=== PATIENT | male | born 1945 | race Caucasian/White ===

== ENCOUNTER 2023-04-01 12:21 | Outpatient (CLI) | payer MEDICARE, MEDICAID, SELFPAY ==
--- NOTE | ~2023-04-01 | MR_ITS ---
EXAMINATION: MR cervical spine wo con DATE: 04/01/2023 13:22 INDICATION: Neck pain. TECHNIQUE: Magnetic resonance imaging (MRI) of the cervical spine was performed without intravenous c ontrast. COMPARISON: None FINDINGS: There is 13 degrees dextroscoliosis of cervical spine. There is 2 mm anterolisthesis of C4 on C5 and 3 mm anterolisthesis of C7 on T1. There is mildly decreased disc height at C4-C5, C5-C6, an d C6-C7. The spinal cord signal intensity is normal. The following disc levels are specifically discu ssed: C2-C3: The disc is bulging. There is mild right and severe left uncovertebral joint osteoarthritis. T here is moderate right and severe left facet joint osteoarthritis. There is mild bilateral neural for aminal stenosis. There is no central canal stenosis. C3-C4: The disc does not extend beyond the endplate margin. There is mild right and severe left uncov ertebral joint osteoarthritis. There is severe right facet joint osteoarthritis. There is ankylosis o f left facet joint with severe hypertrophy. There is mild right and moderate left neural foraminal st enosis. There is no central canal stenosis. C4-C5: There is a central extrusion. There is mild right and moderate left uncovertebral joint osteoa rthritis. There is severe bilateral facet joint osteoarthritis. There is moderate right and severe le ft neural foraminal stenosis. There is mild central canal stenosis. C5-C6: The disc is bulging. There is severe bilateral uncovertebral joint osteoarthritis. There is mo derate right and severe left facet joint osteoarthritis. There is moderate right and mild left neural foraminal stenosis. There is mild central canal stenosis with ventral indentation of the spinal cord . C6-C7: The disc is bulging. There is severe bilateral uncovertebral joint osteoarthritis. There is se doug bilateral facet joint osteoarthritis. There is moderate right and mild left neural foraminal sharad nosis. There is mild central canal stenosis. C7-T1: The disc is bulging. There is no uncovertebral joint osteoarthritis. There is severe bilateral facet joint osteoarthritis. There is moderate bilateral neural foraminal stenosis. There is no centr al canal stenosis. IMPRESSION: 1. Moderate cervical spondylosis. 2. Cervical dextroscoliosis. Reviewed, dictated and finalized at location A.
== END 2023-04-01 12:22 | disposition home or self-care (01) ==
PROVIDERS: PCP Internal Medicine; Visit Provider Hospitalist
DX: M47.892 Other spondylosis, cervical region (principal)
CPT/HCPCS: 72141

== ENCOUNTER 2023-10-06 13:28 | Outpatient (CLI) | payer MEDICARE, MEDICAID, SELFPAY ==
--- NOTE | ~2023-10-06 | CT_ITS ---
EXAMINATION: CT cervical spine wo con DATE: 10/06/2023 13:54 INDICATION: Neck fracture. Pain radiating down the right arm. TECHNIQUE: Computed tomography (CT) of the cervical spine was performed without intravenous contrast. Automated exposure control and iterative reconstruction technique were employed. The dose-length pro duct was 383.30 mGy-cm. COMPARISON: Cervical spine MRI 04/01/2023 FINDINGS: There is 12 degrees dextroscoliosis of cervical spine. There is 2 mm anterolisthesis of C4 on C5 and C7 on T1. Vertebral body heights are normal. There is moderately decreased disc height at C 2-C3, mildly decreased disc height at C3-C4 and C4-C5, and moderately decreased disc height at C5-C5 and C5-C6. Osseous central spinal canal is developmentally small. The following disc levels are speci fically discussed: C2-C3: There is severe left uncovertebral joint osteoarthritis. There is severe bilateral facet joint osteoarthritis. There is mild bilateral neural foraminal stenosis. There is no central canal stenosi s. C3-C4: There is mild right and severe left uncovertebral joint osteoarthritis. There is severe right facet joint osteoarthritis. There is ankylosis of left facet joint with severe hypertrophy. There is mild right and moderate left neural foraminal stenosis. There is no central canal stenosis. C4-C5: There is moderate and severe left uncovertebral joint osteoarthritis. There is severe bilatera l facet joint osteoarthritis. There is mild right and moderate left neural foraminal stenosis. There is mild central canal stenosis. C5-C6: There is severe bilateral uncovertebral joint osteoarthritis. There is severe bilateral facet joint osteoarthritis. There is mild bilateral neural foraminal stenosis. There is mild central canal stenosis. C6-C7: There is severe right and mild left uncovertebral joint osteoarthritis. There is severe right facet joint osteoarthritis. There is ankylosis of left facet joint with severe hypertrophy. There is moderate bilateral neural foraminal stenosis. There is mild central canal stenosis. C7-T1: There is no uncovertebral joint osteoarthritis. There is severe bilateral facet joint osteoart hritis. There is moderate bilateral neural foraminal stenosis. There is no central canal stenosis. IMPRESSION: 1. Moderate cervical spondylosis. 2. Cervical dextroscoliosis. Reviewed, dictated and finalized at location E. MATCHER
== END 2023-10-06 13:29 | disposition home or self-care (01) ==
LOC: ANHIMG 13:35
PROVIDERS: PCP Hospitalist; Visit Provider Hospitalist
DX: S12.9XXD Fracture of neck, unspecified, subsequent encounter (principal); X58.XXXD Exposure to other specified factors, subsequent encounter; M47.892 Other spondylosis, cervical region
CPT/HCPCS: 72125

== ENCOUNTER 2024-08-30 04:46 | Inpatient (IN) | payer MEDICARE, MEDICAID, SELFPAY ==
[2024-08-30] VITALS (31 sets, daily range): BP systolic 113–164; BP diastolic 52–77; PULSE 68–97; RESP 14–25; TEMP 36.3–37.8; O2SAT 92–98; BMI 27.0
--- NOTE | ~2024-08-30 | CT_ITS ---
EXAMINATION: CTA chest PE abdomen pel DATE: 08/31/2024 16:05 INDICATION: Shortness of breath. TECHNIQUE: Computed tomography angiography (CTA) of the chest was performed with 100 mL Omnipaque-350 intravenous contrast timed to evaluate the pulmonary arteries. Coronal maximum intensity projection 3D-reconstructions were created by the technologist. Computed tomography (CT) of the abdomen and pelv is was performed with intravenous contrast. Automated exposure control and iterative reconstruction t echnique were employed. The dose-length product was 968.27 mGy-cm. COMPARISON: Chest single view 08/30/2024 FINDINGS: CTA chest: There is mild emphysema. There are tree-in-bud opacities, centrilobular nodules, and small airspace opacities in right upper lobe, right middle lobe, and right lower lobe, consistent with pne umonia. No pleural effusion. The heart size is normal. No pericardial effusion. There are acute pulmo nary emboli in right lower lobe. There is mild thoracic spondylosis. CT abdomen and pelvis: The liver, gallbladder, spleen, pancreas, adrenal glands, and right kidney are normal. There are cysts in left kidney measuring up to 7 mm. There is calcified atherosclerosis of t he aorta and many of the other arteries. There is dense in the common iliac arteries. There is divert iculosis of the colon without evidence of diverticulitis. The appendix is normal. There are no dilate d loops of bowel. There are no pathologically enlarged lymph nodes. There is no free intraperitoneal fluid. There is severe lower lumbar spondylosis. IMPRESSION: 1. Acute right lower lobe pulmonary emboli. I called this result to Salome Berry. 2. Right-sided pneumonia. 3. Mild emphysema. Reviewed, dictated and finalized at location A. IMPRESSION: 1. Acute right lower lobe pulmonary emboli. I called this result to Salome Davey. 2. Right-sided pneumonia. 3. Mild emphysema.
--- NOTE | ~2024-08-30 | XR_ITS ---
Portable chest x-ray Comparison: None Clinical History: Shortness of breath Findings: There is mild right basilar haziness, nonspecific. Left lung clear. Cardiomediastinal pam houette is unremarkable. Bones and soft tissues are unremarkable. Impression: Nonspecific right basilar haziness. Correlate for pneumonia, atelectasis, or chronic changes. Reviewed, dictated and finalized at [facility]. Impression: Nonspecific right basilar haziness. Correlate for pneumonia, atelectasis, or ch ronic changes.
--- NOTE | ~2024-08-30 | CT_ITS ---
Noncontrast CT scan of the cervical spine Technique: Multiple contiguous axial [address] images of the cervical spine were obtained and rec onstructed in 2D sagittal and coronal planes on the acquisition scanner. Dose reduction technique was used on this scan by utilizing automated exposure control, adjustment of the mA and/or kV according to patient size. The dose-length product (DLP) was 353.77 mGy-cm. Clinical History: Pain COMPARISON: 10/06/2023 Findings: No fractures or dislocations. There is moderate to advanced degenerative disc change throu ghout the cervical spine, stable from prior exam. There is fusion of the left C3-C4 facet joint. Ther e is also fusion of the left C6-C7 facet joint. Advanced facet joint degenerative changes are present otherwise in the cervical spine. Probable mild bilateral neural foraminal narrowing at C2-C3. There is bilateral neural foraminal narrowing at C3-C4, C4-C5, C5-C6, and C6-C7. Probable mild canal stenos is at C4-C5 and C5-C6. No prevertebral soft tissue swelling. Impression: No fracture or subluxation of the cervical spine. Extensive degenerative spondylitic changes, as above, similar to prior exam. Reviewed, dictated and finalized at location . Impression: No fracture or subluxation of the cervical spine. Extensive degenerative spondylitic changes, as above, similar to prior exam.
--- NOTE | ~2024-08-30 | XR_ITS ---
EXAM: XR hip LT min 2V DATE: 09/01/2024 13:02 HISTORY: fall, hip pain . COMPARISON: None available. FINDINGS: Osteopenia. No fracture or dislocation. No lytic or blastic lesion. Severe osteoarthritis in the left hip. Lumbar degenerative disc disease. No erosion or periosteal change. Soft tissues with in normal limits. IMPRESSION: No acute osseous finding in the left hip. Reviewed, dictated and finalized at location K.
--- NOTE | ~2024-08-30 | XR_ITS ---
EXAMINATION: XR barium swallow modified DATE: 09/03/2024 08:48 INDICATION: Dysphagia. TECHNIQUE: The patient was given barium-containing material of multiple consistencies to swallow by t he speech pathologist while I performed fluoroscopy. Fluoroscopy exposure time was 1.0 minutes. The n umber of fluoroscopy images saved to the PACS was 1. Dose-area product was 0.847 Gy-cm^2. FINDINGS: The oral stage, pharyngeal stage, and cervical/esophageal stage of the swallow are normal. IMPRESSION: 1. Normal modified barium swallow. 2. Please refer to the speech therapy report for recommendations. Reviewed, dictated and finalized at location A.
--- NOTE | ~2024-08-30 | CT_ITS ---
CT head without contrast Indication: Head injury Technique: Serial scans were obtained through the brain without the administration of contrast. Dose reduction technique was used on this scan by utilizing automated exposure control and iterative recon struction technique. The dose-length product (DLP) was 605.33 mGy-cm. Findings: There is no evidence of intracranial hemorrhage, mass lesion, or acute infarct. The ventri cles and subarachnoid spaces are dilated, consistent with mild to moderate atrophy. Low attenuation regions are seen within the periventricular white matter bilaterally, likely representing changes fro m chronic microvascular ischemic disease. There is no evidence of edema, mass effect or midline shif t. The visualized paranasal sinuses and mastoid air cells are clear. Impression: No intracranial hemorrhage, mass, or acute infarct. Atrophy and chronic white matter changes, as above. Reviewed, dictated and finalized at location M. Impression: No intracranial hemorrhage, mass, or acute infarct. Atrophy and chronic white matter changes, as above.
--- NOTE | 2024-08-30 04:55 | ECG_ITS ---
Test Date: 2024-08-30 04:59:27 Measurements Intervals [place] Rate: 95 P: 42 OK: 136 QRS: -28 QRSD: 98 T: 34 QT: 331 QTc: 417 Interpretive Statements SINUS RHYTHM BORDERLINE LEFT AXIS DEVIATION [QRS AXIS < -20] INCOMPLETE RIGHT BUNDLE BRANCH BLOCK [90+ ms QRS DURATION, TERMINAL R IN V1/V2, 40+ ms S IN I/aVL/V4/V5/V6] No previous ECG available for comparison Electronically Signed On 08-30-2024 12:07:22 CDT by Joseph Velasco M.D.
--- NOTE | 2024-08-30 05:01 | ED.GENADULT ---
HPI - General Adult General Chief complaint: Upper Respiratory Infection <Isaac Land MD - Last Filed: 08/30/24 07:04> Stated complaint: uri <Isaac Land MD - Last Filed: 08/30/24 07:04> Time Seen by Provider: 08/30/24 04:51 <Isaac Land MD - Last Filed: 08/30/24 07:04> History of Present Illness HPI narrative: Patient is a 78-year-old gentleman who presents emergency department with chief complaint of ground level fall. The patient tested positive for COVID-19 approximately 12 days ago the patient has been feeling weaker than normal on the staff states that he has been slightly confused the patient had a ground level fall the patient reports that he may have bumped his forehead and landed on his knees the patient is on an aspirin at the facility decided that he needed to be transported out as they have a policy that the patient falls on anti-platelet therapy that they must be sent to the emergency department. <Isaac Land MD - Last Filed: 08/30/24 07:04> Review of Systems Review of Systems: A 10 system review of systems was completed on the patient and is negative except for what is stated in the HPI. Nursing and ancillary documentation was reviewed. <Isaac Land MD - Last Filed: 08/30/24 07:04> Exam Narrative: GENERAL: Well-appearing, well-nourished, and in no acute distress. HEAD: Normocephalic, atraumatic. EYES: PERRLA and EOMI. ENT: Nares clear, no rhinorrhea or epistaxis. Mucous membranes moist. NECK: Supple. CHEST: Clear to auscultation. No respiratory distress. HEART: Regular rate and rhythm. No murmur heard. Normal peripheral pulses. ABDOMEN: Soft, nontender, nondistended, normal active bowel sounds. EXTREMITIES: Normal range of motion. No edema. SKIN: Warm, dry, no rash. NEURO: No focal deficits. Alert and oriented x3. PSYCH: Normal mood and affect. <Isaac Land MD - Last Filed: 08/30/24 07:04> Course Course Emergency Course: Zych 0930: 78-year-old male with COVID pneumonia signed out pending completion of workup. Repeat troponin was unremarkable. Before discharge the [facility] we performed an ambulatory pulse ox. Patient became winded and desaturated to 88% Patient has a white count of 15, he is tachypneic and tachycardic w/ increased oxygen demands on minimal exertion. Patient meets sepsis criteria. COVID symptoms started 10-12 days ago in his condition should have been improving by now. He has haziness on the chest x-ray which may represent resolving PNA or secondary PNA. Patient be started on antibiotics to cover seconary pna and given fluid resuscitation. Patient admitted to the hospital. <Jose Guadalupe Cano MD - Last Filed: 08/30/24 09:45> Vital Signs Vital signs: Vital Signs Temperature 97.4 F L 08/30/24 04:48 Pulse Rate 97 08/30/24 04:48 Respiratory Rate 24 H 08/30/24 04:48 Blood Pressure 150/77 H 08/30/24 04:48 Pulse Oximetry 95 08/30/24 04:48 Oxygen Delivery Room Air 08/30/24 04:48 Temperature 97.4 F L 08/30/24 04:48 Pulse Rate 90 08/30/24 07:54 Respiratory Rate 16 08/30/24 07:54 Blood Pressure 140/64 08/30/24 07:54 Pulse Oximetry 95 08/30/24 07:54 Oxygen Delivery Room Air 08/30/24 05:21 <Isaac Land MD - Last Filed: 08/30/24 07:04> Vital Signs Temperature 97.4 F L 08/30/24 04:48 Pulse Rate 97 08/30/24 04:48 Respiratory Rate 24 H 08/30/24 04:48 Blood Pressure 150/77 H 08/30/24 04:48 Pulse Oximetry 95 08/30/24 04:48 Oxygen Delivery Room Air 08/30/24 04:48 Temperature 97.4 F L 08/30/24 04:48 Pulse Rate 90 08/30/24 07:54 Respiratory Rate 16 08/30/24 07:54 Blood Pressure 140/64 08/30/24 07:54 Pulse Oximetry 95 08/30/24 07:54 Oxygen Delivery Room Air 08/30/24 05:21 <Jose Guadalupe Cano MD - Last Filed: 08/30/24 09:45> Medical Decision Making [facility] Narrative Medical decision making narrative: Differential diagnosis includes COVID, COVID pneumonia, upper respiratory infection, head injury, intracranial hemorrhage, Laboratory studies were obtained on the patient showed a white count of 15.4 procalcitonin 0.3 troponin is 0.026 EKG showed no acute ischemic changes Chest x-ray showed some slight haziness in the right basilar region CT head showed no acute abnormality CT cervical spine showed no evidence of fracture. The patient is still positive for COVID-19 Plan will be to observe the patient in the emergency department repeat troponin and if the patient is in no acute distress the plan will be to discharge the patient <Isaac Land MD - Last Filed: 08/30/24 07:04> Differential diagnosis includes COVID, COVID pneumonia, upper respiratory infection, head injury, intracranial hemorrhage, Laboratory studies were obtained on the patient showed a white count of 15.4 procalcitonin 0.3 troponin is 0.026 EKG showed no acute ischemic changes Chest x-ray showed some slight haziness in the right basilar region CT head showed no acute abnormality CT cervical spine showed no evidence of fracture. The patient is still positive for COVID-19 Signed out pending completion of workup and re-evaluation. <Jose Guadalupe Cano MD - Last Filed: 08/30/24 09:45> Vital Signs Vital Signs: Vital Signs Temperature 97.4 F L 08/30/24 04:48 Pulse Rate 97 08/30/24 04:48 Respiratory Rate 24 H 08/30/24 04:48 Blood Pressure 150/77 H 08/30/24 04:48 Pulse Oximetry 95 08/30/24 04:48 Oxygen Delivery Room Air 08/30/24 04:48 Temperature 97.4 F L 08/30/24 04:48 Pulse Rate 90 08/30/24 07:54 Respiratory Rate 16 08/30/24 07:54 Blood Pressure 140/64 08/30/24 07:54 Pulse Oximetry 95 08/30/24 07:54 Oxygen Delivery Room Air 08/30/24 05:21 <Isaac Land MD - Last Filed: 08/30/24 07:04> Vital Signs Temperature 97.4 F L 08/30/24 04:48 Pulse Rate 97 08/30/24 04:48 Respiratory Rate 24 H 08/30/24 04:48 Blood Pressure 150/77 H 08/30/24 04:48 Pulse Oximetry 95 08/30/24 04:48 Oxygen Delivery Room Air 08/30/24 04:48 Temperature 97.4 F L 08/30/24 04:48 Pulse Rate 90 08/30/24 07:54 Respiratory Rate 16 08/30/24 07:54 Blood Pressure 140/64 08/30/24 07:54 Pulse Oximetry 95 08/30/24 07:54 Oxygen Delivery Room Air 08/30/24 05:21 <Jose Guadalupe Cano MD - Last Filed: 08/30/24 09:45> Lab Data Result diagrams: 08/30/24 05:04 08/30/24 05:04 <Isaac Land MD - Last Filed: 08/30/24 07:04> Labs: Lab Results 08/30/24 08/30/24 08/30/24 Range/Units 05:04 05:42 06:10 WBC 15.4 H (4.5-10.0) K/mm3 RBC 4.62 (4.6-6.20) M/mm3 Hgb 15.5 (14.0-18.0) g/dL Hct 45.1 (42.0-52.0) % MCV 97.6 (80-100) fl MCH 33.5 (26-34) pg MCHC 34.4 (32-36) g/dl RDW 12.8 (11.5-14.5) % Plt Count 210 (150-375) k/mm3 MPV 9.4 (7.4-10.4) fl Immature Gran % (Auto) 0.3 (0-0.5) % Neut % (Auto) 84.0 H (45.5-73.1) % Lymph % (Auto) 5.6 L (18.3-44.2) % [place] % (Auto) 9.7 H (2.6-8.5) % Eos % (Auto) 0.1 (0-4.4) % Baso % (Auto) 0.3 (0.2-1.2) % Lymph # (Auto) 0.87 L (0.9-3.2) K/mm3 [place] # (Auto) 1.5 H (0.1-0.6) K/mm3 Eos # (Auto) 0.0 (0-0.3) K/mm3 Baso # (Auto) 0.1 (0.0-0.1) K/mm3 Abs Immat Gran (auto) 0.05 H (0.00-0.031) K/mm3 Absolute Neuts (auto) 13.0 H (1.3-6.7) K/mm3 Absolute Nucleated RBC 0.000 (0.0-0.012) K/mm3 Nucleated RBC % 0.0 (0.0-0.2) % PT 14.4 (11.1-14.7) Seconds INR 1.1 APTT 33.9 (22.3-36.8) Seconds Sodium 134 L (137-145) mmol/L Potassium 3.8 (3.4-5.0) mmol/L Chloride 100 (98-107) mmol/L Carbon Dioxide 23 (22-30) mmol/L Anion Gap 11 (4-12) mmol/L BUN 18 (9-20) mg/dL Creatinine 1.20 (0.7-1.3) mg/dL Estim Creat Clear Calc 45 ml/min Estimated GFR 59 (59 - ) Glucose 117 H (65-110) mg/dL Lactic Acid 1.6 (0.7-2.0) mmol/L Calcium 8.9 (8.4-10.2) mg/dL Total Bilirubin 1.8 H (0.2-1.3) mg/dL AST 56 (17-59) U/L ALT 33 (6-50) U/L Alkaline Phosphatase 107 (38-126) U/L Troponin I 0.026 (0.000-0.034) ng/mL NT-Pro-B Natriuret Pep 399 H (19.9-100) pg/mL Total Protein 8.0 (6.3-8.2) g/dL Albumin 4.4 (3.5-5.1) g/dL Procalcitonin 0.3 ng/mL Urine Color Yellow (Yellow) Urine Appearance Clear (Clear) Urine pH 5.5 (5.0-9.0) Ur Specific [place] 1.018 (1.001-1.035) Urine Protein Trace (Negative) mg/dL Urine Glucose (UA) Negative (Negative) mg/dL Urine Ketones Trace H (Negative) mg/dL Ur Blood (Man) Negative (Negative) Urine Nitrate Negative (Negative) Urine Bilirubin Negative (Negative) Urine Urobilinogen 1.0 (<2.0) mg/dL Leukocyte Esterase Rfl Negative (Negative) KULWINDER/UL Urine RBC 0-2 (0-2) /hpf Urine WBC 0-5 (0-3) /hpf Ur Squamous Epith Cells None seen (Few) /hpf Urine Bacteria None seen /hpf Urine Casts 0-2 Influenza A (RT-PCR) Negative (Negative) Influenza B (RT-PCR) Negative (Negative) RSV (RT-PCR) Negative (Negative) SARS-CoV-2 RNA (RT-PCR) Positive A (Negative) 08/30/24 Range/Units 08:05 WBC (4.5-10.0) K/mm3 RBC (4.6-6.20) M/mm3 Hgb (14.0-18.0) g/dL Hct (42.0-52.0) % MCV (80-100) fl MCH (26-34) pg MCHC (32-36) g/dl RDW (11.5-14.5) % Plt Count (150-375) k/mm3 MPV (7.4-10.4) fl Immature Gran % (Auto) (0-0.5) % Neut % (Auto) (45.5-73.1) % Lymph % (Auto) (18.3-44.2) % [place] % (Auto) (2.6-8.5) % Eos % (Auto) (0-4.4) % Baso % (Auto) (0.2-1.2) % Lymph # (Auto) (0.9-3.2) K/mm3 [place] # (Auto) (0.1-0.6) K/mm3 Eos # (Auto) (0-0.3) K/mm3 Baso # (Auto) (0.0-0.1) K/mm3 Abs Immat Gran (auto) (0.00-0.031) K/mm3 Absolute Neuts (auto) (1.3-6.7) K/mm3 Absolute Nucleated RBC (0.0-0.012) K/mm3 Nucleated RBC % (0.0-0.2) % PT (11.1-14.7) Seconds INR APTT (22.3-36.8) Seconds Sodium (137-145) mmol/L Potassium (3.4-5.0) mmol/L Chloride (98-107) mmol/L Carbon Dioxide (22-30) mmol/L Anion Gap (4-12) mmol/L BUN (9-20) mg/dL Creatinine (0.7-1.3) mg/dL Estim Creat Clear Calc ml/min Estimated GFR (59 - ) Glucose (65-110) mg/dL Lactic Acid (0.7-2.0) mmol/L Calcium (8.4-10.2) mg/dL Total Bilirubin (0.2-1.3) mg/dL AST (17-59) U/L ALT (6-50) U/L Alkaline Phosphatase (38-126) U/L Troponin I 0.023 (0.000-0.034) ng/mL NT-Pro-B Natriuret Pep (19.9-100) pg/mL Total Protein (6.3-8.2) g/dL Albumin (3.5-5.1) g/dL Procalcitonin ng/mL Urine Color (Yellow) Urine Appearance (Clear) Urine pH (5.0-9.0) Ur Specific [place] (1.001-1.035) Urine Protein (Negative) mg/dL Urine Glucose (UA) (Negative) mg/dL Urine Ketones (Negative) mg/dL Ur Blood (Man) (Negative) Urine Nitrate (Negative) Urine Bilirubin (Negative) Urine Urobilinogen (<2.0) mg/dL Leukocyte Esterase Rfl (Negative) KULWINDER/UL Urine RBC (0-2) /hpf Urine WBC (0-3) /hpf Ur Squamous Epith Cells (Few) /hpf Urine Bacteria /hpf Urine Casts Influenza A (RT-PCR) (Negative) Influenza B (RT-PCR) (Negative) RSV (RT-PCR) (Negative) SARS-CoV-2 RNA (RT-PCR) (Negative) <Isaac Land MD - Last Filed: 08/30/24 07:04> Lab Results 08/30/24 08/30/24 08/30/24 Range/Units 05:04 05:42 06:10 WBC 15.4 H (4.5-10.0) K/mm3 RBC 4.62 (4.6-6.20) M/mm3 Hgb 15.5 (14.0-18.0) g/dL Hct 45.1 (42.0-52.0) % MCV 97.6 (80-100) fl MCH 33.5 (26-34) pg MCHC 34.4 (32-36) g/dl RDW 12.8 (11.5-14.5) % Plt Count 210 (150-375) k/mm3 MPV 9.4 (7.4-10.4) fl Immature Gran % (Auto) 0.3 (0-0.5) % Neut % (Auto) 84.0 H (45.5-73.1) % Lymph % (Auto) 5.6 L (18.3-44.2) % [place] % (Auto) 9.7 H (2.6-8.5) % Eos % (Auto) 0.1 (0-4.4) % Baso % (Auto) 0.3 (0.2-1.2) % Lymph # (Auto) 0.87 L (0.9-3.2) K/mm3 [place] # (Auto) 1.5 H (0.1-0.6) K/mm3 Eos # (Auto) 0.0 (0-0.3) K/mm3 Baso # (Auto) 0.1 (0.0-0.1) K/mm3 Abs Immat Gran (auto) 0.05 H (0.00-0.031) K/mm3 Absolute Neuts (auto) 13.0 H (1.3-6.7) K/mm3 Absolute Nucleated RBC 0.000 (0.0-0.012) K/mm3 Nucleated RBC % 0.0 (0.0-0.2) % PT 14.4 (11.1-14.7) Seconds INR 1.1 APTT 33.9 (22.3-36.8) Seconds Sodium 134 L (137-145) mmol/L Potassium 3.8 (3.4-5.0) mmol/L Chloride 100 (98-107) mmol/L Carbon Dioxide 23 (22-30) mmol/L Anion Gap 11 (4-12) mmol/L BUN 18 (9-20) mg/dL Creatinine 1.20 (0.7-1.3) mg/dL Estim Creat Clear Calc 45 ml/min Estimated GFR 59 (59 - ) Glucose 117 H (65-110) mg/dL Lactic Acid 1.6 (0.7-2.0) mmol/L Calcium 8.9 (8.4-10.2) mg/dL Total Bilirubin 1.8 H (0.2-1.3) mg/dL AST 56 (17-59) U/L ALT 33 (6-50) U/L Alkaline Phosphatase 107 (38-126) U/L Troponin I 0.026 (0.000-0.034) ng/mL NT-Pro-B Natriuret Pep 399 H (19.9-100) pg/mL Total Protein 8.0 (6.3-8.2) g/dL Albumin 4.4 (3.5-5.1) g/dL Procalcitonin 0.3 ng/mL Urine Color Yellow (Yellow) Urine Appearance Clear (Clear) Urine pH 5.5 (5.0-9.0) Ur Specific [place] 1.018 (1.001-1.035) Urine Protein Trace (Negative) mg/dL Urine Glucose (UA) Negative (Negative) mg/dL Urine Ketones Trace H (Negative) mg/dL Ur Blood (Man) Negative (Negative) Urine Nitrate Negative (Negative) Urine Bilirubin Negative (Negative) Urine Urobilinogen 1.0 (<2.0) mg/dL Leukocyte Esterase Rfl Negative (Negative) KULWINDER/UL Urine RBC 0-2 (0-2) /hpf Urine WBC 0-5 (0-3) /hpf Ur Squamous Epith Cells None seen (Few) /hpf Urine Bacteria None seen /hpf Urine Casts 0-2 Influenza A (RT-PCR) Negative (Negative) Influenza B (RT-PCR) Negative (Negative) RSV (RT-PCR) Negative (Negative) SARS-CoV-2 RNA (RT-PCR) Positive A (Negative) 08/30/24 Range/Units 08:05 WBC (4.5-10.0) K/mm3 RBC (4.6-6.20) M/mm3 Hgb (14.0-18.0) g/dL Hct (42.0-52.0) % MCV (80-100) fl MCH (26-34) pg MCHC (32-36) g/dl RDW (11.5-14.5) % Plt Count (150-375) k/mm3 MPV (7.4-10.4) fl Immature Gran % (Auto) (0-0.5) % Neut % (Auto) (45.5-73.1) % Lymph % (Auto) (18.3-44.2) % [place] % (Auto) (2.6-8.5) % Eos % (Auto) (0-4.4) % Baso % (Auto) (0.2-1.2) % Lymph # (Auto) (0.9-3.2) K/mm3 [place] # (Auto) (0.1-0.6) K/mm3 Eos # (Auto) (0-0.3) K/mm3 Baso # (Auto) (0.0-0.1) K/mm3 Abs Immat Gran (auto) (0.00-0.031) K/mm3 Absolute Neuts (auto) (1.3-6.7) K/mm3 Absolute Nucleated RBC (0.0-0.012) K/mm3 Nucleated RBC % (0.0-0.2) % PT (11.1-14.7) Seconds INR APTT (22.3-36.8) Seconds Sodium (137-145) mmol/L Potassium (3.4-5.0) mmol/L Chloride (98-107) mmol/L Carbon Dioxide (22-30) mmol/L Anion Gap (4-12) mmol/L BUN (9-20) mg/dL Creatinine (0.7-1.3) mg/dL Estim Creat Clear Calc ml/min Estimated GFR (59 - ) Glucose (65-110) mg/dL Lactic Acid (0.7-2.0) mmol/L Calcium (8.4-10.2) mg/dL Total Bilirubin (0.2-1.3) mg/dL AST (17-59) U/L ALT (6-50) U/L Alkaline Phosphatase (38-126) U/L Troponin I 0.023 (0.000-0.034) ng/mL NT-Pro-B Natriuret Pep (19.9-100) pg/mL Total Protein (6.3-8.2) g/dL Albumin (3.5-5.1) g/dL Procalcitonin ng/mL Urine Color (Yellow) Urine Appearance (Clear) Urine pH (5.0-9.0) Ur Specific [place] (1.001-1.035) Urine Protein (Negative) mg/dL Urine Glucose (UA) (Negative) mg/dL Urine Ketones (Negative) mg/dL Ur Blood (Man) (Negative) Urine Nitrate (Negative) Urine Bilirubin (Negative) Urine Urobilinogen (<2.0) mg/dL Leukocyte Esterase Rfl (Negative) KUL[place]ER/UL Urine RBC (0-2) /hpf Urine WBC (0-3) /hpf Ur Squamous Epith Cells (Few) /hpf Urine Bacteria /hpf Urine Casts Influenza A (RT-PCR) (Negative) Influenza B (RT-PCR) (Negative) RSV (RT-PCR) (Negative) SARS-CoV-2 RNA (RT-PCR) (Negative) <Jose Guadalupe Cano MD - Last Filed: 08/30/24 09:45> Discharge Plan Discharge Clinical Impression: Upper respiratory infection, Fall from ground level, Head injury, PNA (pneumonia), Sepsis <Isaac Land MD - Last Filed: 08/30/24 07:04> Patient Disposition: Still a Patient <Isaac Land MD - Last Filed: 08/30/24 07:04> Condition: Stable <Isaac Land MD - Last Filed: 08/30/24 07:04> Instructions: Viral Pneumonia (ED), Head Injury (ED), COVID-19 (Coronavirus Disease 2019) (ED) <Isaac Land MD - Last Filed: 08/30/24 07:04> Follow-up/Referrals: Pasquale Gonzalez MD [Primary Care Provider] - <Isaac Land MD - Last Filed: 08/30/24 07:04>
[2024-08-30 05:15] LABS: Basophils Absolute Auto 0.1 K/mm3 (0.0-0.1); Basophils Percent Auto 0.3 % (0.2-1.2); Eosinophils Percent Auto 0.1 % (0-4.4); Hematocrit 45.1 % (42.0-52.0); Hemoglobin 15.5 g/dL (14.0-18.0); Immature Granulocyte Absolute 0.05 K/mm3 (0.00-0.031); Immature Granulocyte Percent A 0.3 % (0-0.5); Lymphocytes Absolute Auto 0.87 K/mm3 (0.9-3.2); Lymphocytes Percent Auto 5.6 % (18.3-44.2); Mean Corpuscular HGB Conc 34.4 g/dl (32-36); Mean Corpuscular Hemoglobin 33.5 pg (26-34); Mean Corpuscular Volume 97.6 fl (80-100); Mean Platelet Volume 9.4 fl (7.4-10.4); Monocytes Absolute Auto 1.5 K/mm3 (0.1-0.6); Monocytes Percent Auto 9.7 % (2.6-8.5); Platelet Count Result 210 k/mm3 (150-375); Red Blood Count 4.62 M/mm3 (4.6-6.20); Red Cell Distribution Width 12.8 % (11.5-14.5); White Blood Count 15.4 K/mm3 (4.5-10.0)
[2024-08-30 05:25] LABS: Lactic Acid Reflex 1.6 mmol/L (0.7-2.0)
[2024-08-30 05:28] LABS: Alanine Aminotransferase 33 U/L (6-50); Albumin Level 4.4 g/dL (3.5-5.1); Alkaline Phosphatase 107 U/L (38-126); Anion Gap 11 mmol/L (4-12); Aspartate Amino Transferase 56 U/L (17-59); Bilirubin,Total 1.8 mg/dL (0.2-1.3); Blood Urea Nitrogen 18 mg/dL (9-20); Calcium 8.9 mg/dL (8.4-10.2); Carbon Dioxide 23 mmol/L (22-30); Chloride 100 mmol/L (98-107); Estimated CRCL calculation 45 ml/min; Estimated Glomerular Filt Rate 59; Glucose 117 mg/dL (65-110); Potassium 3.8 mmol/L (3.4-5.0); Sodium 134 mmol/L (137-145)
[2024-08-30 05:39] LABS: NT Pro B Type Natriuretic Pept 399 pg/mL (19.9-100); Troponin I 0.026 ng/mL (0.000-0.034)
[2024-08-30 05:57] LABS: Procalcitonin 0.3 ng/mL
[2024-08-30 05:58] LABS: INR 1.1; Prothrombin Time 14.4 Seconds (11.1-14.7)
[2024-08-30 05:59] LABS: Partial Thromboplastin Time 33.9 Seconds (22.3-36.8)
[2024-08-30 06:02] LABS: Influenza A QL RT-PCR Negative (Negative); Influenza B QL RT-PCR Negative (Negative); RSV RNA, RT-PCR Negative (Negative); SARS-CoV-2 RNA PCR Positive (Negative)
[2024-08-30 06:22] LABS: Add Urine Microscopic? YES; Appearance Urine Clear (Clear); Bacteria Urine None Seen /hpf; Bilirubin Urine Negative (Negative); Blood Urine Negative (Negative); Color Urine Yellow (Yellow); Glucose Urine UA Negative (Negative); Ketones Urine Trace mg/dL (Negative); Leukocyte Esterase Ur Negative LEU/UL (Negative); Nitrate Urine Negative (Negative); Non Pathogenic Casts 0-2; Protein Urine Trace mg/dL (Negative); RBC Urine 0-2 /hpf (0-2); Specific Grav Ur 1.018 (1.001-1.035); Squamous Epithelial Cell Urine None Seen /hpf (Few); WBC Urine 0-5 /hpf (0-3); pH Urine 5.5 (5.0-9.0)
[2024-08-30 08:33] LABS: Troponin I 0.023 ng/mL (0.000-0.034)
--- NOTE | 2024-08-30 09:34 | PC.NURSE ---
Pt ambulated w pulse ox. Walking pulse ox dropped to 88%. Pt repositioned back in bed. Resting oxygen increased to 95%. made aware.
[2024-08-30] MEDS: SODIUM CHLORIDE 0.9% IV 2,500 ML 999 ML IV CONT (10:18)
--- NOTE | 2024-08-30 10:43 | PC.NURSE ---
BRIAN Win, at [facility], [place], [facility] called for update on pt.
--- NOTE | 2024-08-30 12:01 | ADMGEN ---
This patient, Gamaliel Owusu, was admitted to 3 Med Surg Room 302-01. Patient/family oriented to hospital policies and general routines including ID bracelet, bed and alarms, visiting hours, pain management, procedures, bathroom and other care routines, personal items, smoking policy, room service/diet, and visiting hours. Information on how to activate the Rapid Response Team has been discussed. Patient/Family are encouraged to report perceived risks to care and to ask questions if they do not understand what they are told or what they should do.
--- NOTE | 2024-08-30 12:21 | PM.IMHP ---
H&P: HPI History of Present Illness Date/Time: 08/30/24 12:21 Chief Complaint: Fall, Weakness, SOB Narrative: 78 y/o M presents here with ground-level fall, weakness, and shortness of breath with PMH of DE, CAD with 7 stents placed, and hypothyroidism. The patient presents here from [facility] via EMS for further evaluation after a ground level fall yesterday. The patient tested positive for COVID approximately 2-3 weeks ago, unsure what exact day. Since testing positive, felt okay the first week and did not have any symptoms. During the second week after testing positive he developed generalized weakness, cold-like symptoms, and shortness of breath. Symptoms have significantly worsened in the last 2-3 days. Yesterday he lost his balance and was not using his walker at the time (utilizes walker at baseline). The patient believes he landed on his knees, does not believe he sustained a head strike but has small area of ecchymosis to central forehead which is new, and denies loss of consciousness. The patient is not on anticoagulation, does take a daily aspirin. Denies chest pain, palpitations, dizziness, abdominal pain, nausea, vomiting, or diarrhea. +chills and fever. Initial VS at presentation: 97.4? F, HR 97, RR 24, 150/77, and 95% on RA. ED workup showed: WBC 15.4, normal coags, sodium 134, glucose 117, creatinine 1.2 and GFR 59 (no previous available for comparison), initial troponin 0.026, BNP 399 (normal when adjusted for age), procalcitonin 0.3, and UA showed trace ketones otherwise unremarkable. Patient continues to test positive for COVID. CXR showed nonspecific right basilar haziness, correlate for pneumonia atelectasis or chronic changes. C-spine CT showed no fracture or subluxation of the cervical spine and extensive degenerative spondylitic changes. Head CT showed no acute findings and chronic white matter changes/atrophy. Review of Systems Review of Systems: All systems reviewed & are unremarkable except as noted in HPI and below PMFSH Past Medical History Medical History CAD (coronary artery disease) Depression GERD (gastroesophageal reflux disease) Glaucoma Hemorrhoids Hypothyroidism Myocardial infarction Nodular prostate Retinal detachment Walker as ambulation aid Surgical History Surgical History History of bilateral cataract extraction History of coronary artery stent placement x7 History of eye surgery Social History Social History Smoking packs per day: 2 Smoking cigarettes per day: 40.0 Years smoked: 40 Smoking pack-years: 80.00 Smoking status: Former smoker Smoking end date: 11/28/07 Alcohol intake: never Substance use: never Do You Feel Safe in your Home?: Yes Lack of Transportation: No Lack of Food: Never True Current Housing: I Have Housing Concerned About Future Housing: No Difficulty Paying Gas/Electric Bills: No Difficulty Paying for Meds: No Currently Unemployed: No Education: Trade/Vocational Certificate Difficulty w/ Childcare or Family Care: No Spiritual care concerns: No Meds Home Medications and Allergies Home Medications Medication Instructions Recorded Confirmed Type acetaminophen 325 mg tablet 650 mg PO Q4H PRN Pain 08/30/24 08/30/24 History aspirin 81 mg chewable tablet 81 mg PO DAILY 08/30/24 08/30/24 History atorvastatin 80 mg tablet 80 mg PO HS 08/30/24 08/30/24 History bupropion HCl 150 mg tablet,12 hr 150 mg PO Q12H 08/30/24 08/30/24 History sustained-release cyanocobalamin (vitamin B-12) 1,000 mcg PO DAILY 08/30/24 08/30/24 History 1,000 mcg tablet (Vitamin B-12) gabapentin 300 mg capsule 600 mg PO Q8H 08/30/24 08/30/24 History latanoprost 0.005 % eye drops 1 drp EACH EYE HS 08/30/24 08/30/24 History levothyroxine 112 mcg tablet 112 mcg PO DAILY 08/30/24 08/30/24 History polyvinyl alcohol 1.4 % eye drops 1 drp LEFT EYE BID PRN Dry Eye(S) 08/30/24 08/30/24 History timolol maleate 0.5 % eye drops 1 drp LEFT EYE DAILY 08/30/24 08/30/24 History zolpidem 5 mg tablet 5 mg PO HS 08/30/24 08/30/24 History Allergies Allergy/AdvReac Type Severity Reaction Status Date / Time No Known Allergies Allergy Verified 08/30/24 10:15 Vital Signs Vital Signs - 24 hr 08/30/24 04:48 08/30/24 05:21 08/30/24 06:20 Temperature 97.4 F L Pulse Rate 97 88 Respiratory Rate 24 H 22 H Blood Pressure 150/77 H 145/71 H Pulse Oximetry 95 93 94 Oxygen Delivery Room Air Room Air 08/30/24 07:54 08/30/24 09:35 08/30/24 07:12 Temperature Pulse Rate 90 83 89 Respiratory Rate 16 21 H 19 Blood Pressure 140/64 164/73 H Pulse Oximetry 95 94 93 Oxygen Delivery 08/30/24 07:15 08/30/24 07:30 08/30/24 07:31 Temperature Pulse Rate 85 74 81 Respiratory Rate 18 20 21 H Blood Pressure 140/64 Pulse Oximetry 92 93 93 Oxygen Delivery 08/30/24 07:45 08/30/24 08:00 08/30/24 08:15 Temperature Pulse Rate 73 90 86 Respiratory Rate 19 20 20 Blood Pressure Pulse Oximetry 92 93 93 Oxygen Delivery 08/30/24 08:30 08/30/24 08:31 08/30/24 08:45 Temperature Pulse Rate 90 86 97 Respiratory Rate 20 22 H 25 H Blood Pressure 159/73 H Pulse Oximetry 92 93 Oxygen Delivery 08/30/24 09:00 08/30/24 09:01 08/30/24 09:31 Temperature Pulse Rate Respiratory Rate Blood Pressure 164/73 H Pulse Oximetry 95 96 94 Oxygen Delivery 08/30/24 09:45 08/30/24 10:00 08/30/24 10:15 Temperature Pulse Rate 77 82 82 Respiratory Rate 23 H 22 H 19 Blood Pressure Pulse Oximetry 93 93 Oxygen Delivery 08/30/24 10:30 08/30/24 10:45 08/30/24 11:00 Temperature Pulse Rate 77 68 77 Respiratory Rate 23 H 14 23 H Blood Pressure Pulse Oximetry 94 92 93 Oxygen Delivery 08/30/24 11:15 08/30/24 11:56 Temperature 99.4 F Pulse Rate 70 82 Respiratory Rate 21 H 20 Blood Pressure 149/52 H Pulse Oximetry 98 97 Oxygen Delivery Exam Const: General: comfortable and no acute distress Other: , male, nontoxic appearance, elderly HENMT: Face/Nose/Sinus: Normal nares present Mouth: Yes moist mucous membranes Eyes: General: appearance normal, both eyes and all related structures Sclera: sclerae normal Pupils: Equal, round and reactive pupils present EOM: EOMs intact bilaterally Resp: Effort & Inspection: normal respiratory effort Auscultation: clear to auscultation bilaterally Cardio: Rate: regular rate Rhythm: regular rhythm Other: S1-S2 present without murmur, rub, ectopy GI: Other: Abdomen soft, nondistended, nontender. Normoactive bowel sounds all quadrants. Skin: General skin exam: normal color and no rashes or lesions noted Other: Small area of ecchymosis to central forehead. Neuro: Speech: normal speech Motor exam (neuro): 5/5 motor strength present throughout Sensory Exam: normal sensation Other: A/Ox3-4, some difficulty with situational recall (stated he fell today, then changed it to yesterday, endorsed head strike in ED then denied upon admission). Extrem: General: normal to inspection Psych: Mental Status: mental status grossly normal Affect: normal affect Other: Fair insight and judgment, pleasant H&P: Results Labs Labs: Short CBC 08/30/24 Range/Units 05:04 WBC 15.4 H (4.5-10.0) K/mm3 Hgb 15.5 (14.0-18.0) g/dL Hct 45.1 (42.0-52.0) % Plt Count 210 (150-375) k/mm3 BMP 08/30/24 05:04 Sodium 134 L Potassium 3.8 Chloride 100 Carbon Dioxide 23 BUN 18 Creatinine 1.20 Glucose 117 H Calcium 8.9 Cardiac Enzymes 08/30/24 08/30/24 Range/Units 05:04 08:05 Troponin I 0.026 0.023 (0.000-0.034) ng/mL Liver Function 08/30/24 Range/Units 05:04 Total Bilirubin 1.8 H (0.2-1.3) mg/dL AST 56 (17-59) U/L ALT 33 (6-50) U/L Alkaline Phosphatase 107 (38-126) U/L Albumin 4.4 (3.5-5.1) g/dL Urine 08/30/24 Range/Units 06:10 Urine Color Yellow (Yellow) Urine Appearance Clear (Clear) Urine pH 5.5 (5.0-9.0) Ur Specific [place] 1.018 (1.001-1.035) Urine Protein Trace (Negative) mg/dL Urine Glucose (UA) Negative (Negative) mg/dL Assessment and Plan Assessment and plan (1) Sepsis: Qualifiers: Sepsis acute organ dysfunction status: without acute organ dysfunction Sepsis type: sepsis due to unspecified organism Qualified Code(s): A41.9 - Sepsis, unspecified organism Code(s): A41.9 - Sepsis, unspecified organism Status: Acute Assessment and Plan: - meets SIRS criteria: WBC, HR, RR. No hypoxia or hypotension. - lactic acid: 1.6 - 30 mL/kg = 2400, given 1L bolus. Additional 1L ordered, 100 mL/hr. - suspected source: Pneumonia - started on ceftriaxone and doxycycline IVPB - blood cultures drawn on 08/30, follow - UA: Trace ketones - CXR: Nonspecific right basilar haziness. Correlate for pneumonia, atelectasis, or chronic changes. - monitor labs and hemodynamics (2) PNA (pneumonia): Qualifiers: Pneumonia type: due to COVID-19 virus Qualified Code(s): U07.1 - COVID-19; J12.82 - Pneumonia due to coronavirus disease 2019 Code(s): J18.9 - Pneumonia, unspecified organism Status: Acute Assessment and Plan: - CXR concerning for right basilar pna - risk factors and complicating factors: NH resident, COVID - started on CAP tx: ceftriaxone and doxycycline in IVPB on 08/30 - MRSA PCR and sputum culture (if obtainable) - Viral PCR: +COVID - no supplemental O2 requirement (3) Fall from ground level: Code(s): W18.30XA - Fall on same level, unspecified, initial encounter Status: Acute Assessment and Plan: - trauma workup negative for acute fractures/injury: head CT, c-spine CT, and CXR - fall precautions - consider PT/OT eval and treat to prevent deconditioning if no improvement with fluids/abx in the next 24 hours Plan Initially tested positive for COVID approximately 2-3 weeks ago, has residual positive. Out of window for remdesivir. Diet: Heart healthy GI Prophylaxis: Not currently indicated DVT Prophylaxis: Lovenox SQ Lines: Peripheral Code Status: Full code Quality VTE Prophylaxis VTE prophylaxis: mechanical ordered Hospitalist [facility] Advance Care Plan I have confirmed that the patient's Advanced Care Plan is present, code status is documented, or surrogate decision maker is listed in patient medical record.: Yes Medication Reconciliation I have utilized all available resources to obtain, update and review the patients current medications (includes all prescriptions, OTC, herbals, cannabis, and nutritional supplements).: Yes
[2024-08-30] MEDS: DOXYCYCLINE 100 MG/NS 100 ML 100 MG/100 ML BAG IVPB ×2 (12:43→21:43)
[2024-08-30] MEDS: CYANOCOBALAMIN 1,000 MCG TABLET 1000 MCG PO (12:55)
[2024-08-30] MEDS: GABAPENTIN 300 MG CAPSULE 600 MG PO ×2 (12:55→21:43)
[2024-08-30] MEDS: BENZONATATE 100 MG CAPSULE PO (12:55)
[2024-08-30] MEDS: ASPIRIN 81 MG CHEWABLE TABLET PO (12:55)
[2024-08-30] MEDS: buPROPion HCL SR (12 HR) 150 MG TAB PO ×2 (12:55→21:43)
[2024-08-30] MEDS: ENOXAPARIN 40 MG/0.4 ML SYRINGE SUB-Q (13:01)
[2024-08-30] MEDS: SODIUM CHLORIDE 0.9% IV 1,000 ML 100 ML IV CONT (13:01)
[2024-08-30] MEDS: ACETAMINOPHEN 325 MG TABLET 650 MG PO (13:02)
[2024-08-30] MEDS: TIMOLOL MALEATE 0.5% OP SOLN 5 ML BOTTLE 1 DROP LEFT EYE (13:24)
[2024-08-30 14:29] LABS: MRSA (PCR) NOT DETECTED (NOT DETECTE)
[2024-08-30] MEDS: guaiFENesin 12 HR 600 MG TABCR PO (21:43)
[2024-08-30] MEDS: ZOLPIDEM TARTRATE (*CRX) 5 MG TABLET PO (21:43)
[2024-08-30] MEDS: ATORVASTATIN 40 MG TABLET 80 MG PO (21:43)
[2024-08-30] MEDS: LATANOPROST 0.005% OP SOLN 2.5 ML BTL 1 DROP EACH EYE (21:44)
[2024-08-31 05:35] VITALS: BP 151/68; PULSE 86; RESP 18; TEMP 37.1; O2SAT 93
[2024-08-31] MEDS: LEVOTHYROXINE SODIUM 112 MCG TABLET PO (05:44)
[2024-08-31] MEDS: GABAPENTIN 300 MG CAPSULE 600 MG PO ×3 (05:44→21:23)
[2024-08-31 06:36] LABS: Basophils Absolute Auto 0.1 K/mm3 (0.0-0.1); Basophils Percent Auto 0.4 % (0.2-1.2); Eosinophils Percent Auto 0.3 % (0-4.4); Hematocrit 38.5 % (42.0-52.0); Hemoglobin 12.7 g/dL (14.0-18.0); Immature Granulocyte Absolute 0.09 K/mm3 (0.00-0.031); Immature Granulocyte Percent A 0.7 % (0-0.5); Lymphocytes Absolute Auto 0.82 K/mm3 (0.9-3.2); Lymphocytes Percent Auto 6.1 % (18.3-44.2); Mean Corpuscular Hemoglobin 32.6 pg (26-34); Mean Platelet Volume 9.8 fl (7.4-10.4); Monocytes Absolute Auto 1.3 K/mm3 (0.1-0.6); Monocytes Percent Auto 9.7 % (2.6-8.5); Neutrophils Absolute Auto 11.2 K/mm3 (1.3-6.7); Neutrophils Percent Auto 82.8 % (45.5-73.1); Platelet Count Result 196 k/mm3 (150-375); Red Blood Count 3.89 M/mm3 (4.6-6.20); White Blood Count 13.6 K/mm3 (4.5-10.0)
[2024-08-31 07:00] LABS: Alanine Aminotransferase 42 U/L (6-50); Albumin Level 3.4 g/dL (3.5-5.1); Alkaline Phosphatase 100 U/L (38-126); Anion Gap 8 mmol/L (4-12); Aspartate Amino Transferase 69 U/L (17-59); Bilirubin,Total 1.6 mg/dL (0.2-1.3); Blood Urea Nitrogen 12 mg/dL (9-20); Calcium 8.2 mg/dL (8.4-10.2); Carbon Dioxide 21 mmol/L (22-30); Chloride 106 mmol/L (98-107); Estimated CRCL calculation 48 ml/min; Estimated Glomerular Filt Rate > 60; Glucose 87 mg/dL (65-110); Potassium 3.4 mmol/L (3.4-5.0); Sodium 135 mmol/L (137-145)
[2024-08-31] MEDS: ENOXAPARIN 40 MG/0.4 ML SYRINGE SUB-Q (07:37)
[2024-08-31] MEDS: guaiFENesin 12 HR 600 MG TABCR PO ×2 (07:37→21:23)
[2024-08-31] MEDS: buPROPion HCL SR (12 HR) 150 MG TAB PO ×2 (07:38→21:24)
[2024-08-31] MEDS: ASPIRIN 81 MG CHEWABLE TABLET PO (07:38)
[2024-08-31] MEDS: CYANOCOBALAMIN 1,000 MCG TABLET 1000 MCG PO (07:38)
[2024-08-31] MEDS: TIMOLOL MALEATE 0.5% OP SOLN 5 ML BOTTLE 1 DROP LEFT EYE (07:39)
[2024-08-31] MEDS: BENZONATATE 100 MG CAPSULE PO ×2 (07:41→13:15)
--- NOTE | 2024-08-31 12:47 | PM.IMPN ---
Progress Note: A&P Assessment and Plan (1) Sepsis: Qualifiers: Sepsis acute organ dysfunction status: without acute organ dysfunction Sepsis type: sepsis due to unspecified organism Qualified Code(s): A41.9 - Sepsis, unspecified organism Code(s): A41.9 - Sepsis, unspecified organism Status: Acute Assessment and Plan: Meets SIRS criteria, possible pneumonia: WBC 15.4>13.6, temp 100, HR up to 97 in the ED, currently afebrile. Bilirubin elevated No hypoxia or hypotension. Lactic acid: 1.6 s/p 1 liter bolus, continued on 100ml/hr - started on ceftriaxone and doxycycline IVPB. Change doxy to PO - blood cultures drawn on 08/30, follow 08/30 UA: Trace ketones, negative nitrates and WBC's 08/30 CXR: Nonspecific right basilar haziness. Correlate for pneumonia, atelectasis, or chronic changes. --follow CBC --CT CAP (2) PNA (pneumonia): Qualifiers: Pneumonia type: due to COVID-19 virus Qualified Code(s): U07.1 - COVID-19; J12.82 - Pneumonia due to coronavirus disease 2019 Code(s): J18.9 - Pneumonia, unspecified organism Status: Acute Assessment and Plan: - CXR concerning for right basilar pna - risk factors and complicating factors: [facility] resident, COVID - started on CAP tx: ceftriaxone and doxycycline in IVPB on 08/30 - MRSA PCR and sputum culture (if obtainable) - Viral PCR: +COVID - no supplemental O2 requirement -CT chest r/o PE & eval pnemonia (3) Fall from ground level: Code(s): W18.30XA - Fall on same level, unspecified, initial encounter Status: Acute Assessment and Plan: - trauma workup negative for acute fractures/injury: head CT, c-spine CT, and CXR - fall precautions - consider PT/OT eval and treat to prevent deconditioning if no improvement with fluids/abx in the next 24 hours (4) Upper respiratory infection: Code(s): J06.9 - Acute upper respiratory infection, unspecified Status: Acute Assessment and Plan: Recent COVID Schedule Tessalon perles 200 TID Duonebs q8, unclear if it will be helpful, so can discontinue if no improvement Prednisone 40mg daily x5 days Plan Initially tested positive for COVID approximately 2-3 weeks ago, has residual positive. Out of window for remdesivir. Diet: Heart healthy GI Prophylaxis: Not currently indicated DVT Prophylaxis: Lovenox SQ Lines: Peripheral Code Status: Full code Time Spent With Patient Time: 49 minutes Subjective Date/time seen: 08/31/24 12:47 Interval history: Temp 100 last night, afebrile today. Feeling worse today, more short of breath. Also associated with a severe cough, faint wheezing, primarily tight, end expiratory Review of Systems Review of Systems: All systems reviewed & are unremarkable except as noted in HPI and below Exam Narrative: General - Awake and alert. No acute distress Eyes - PERRLA, EOM intact ENT - No thrush, No erythema Neck - No noticeable or palpable swelling Lymph Nodes - No lymphadenopathy Cardiovascular - RRR no m/r/g, no JVD Lungs: End expiratory wheezing, crackles, rare use of accessory muscles Skin - Skin warm and dry, no wounds or rashes Abdomen - Normal bowel sounds, abdomen soft and nontender Extremities - No edema, cyanosis or clubbing Musculoskeletal - 5/5 strength, normal range of motion, no swollen or erythematous joints. Neurological ? Alert and oriented x 3, CN 2-12 grossly intact. Psych: Normal mood and affect Objective Data Vital Signs Vital Signs: Vital Signs - 24 hr 08/30/24 13:02 08/30/24 13:55 08/30/24 14:02 Temperature 100 F H 100.0 F H 98.9 F Pulse Rate 88 Respiratory Rate 16 Blood Pressure 113/65 Pulse Oximetry 94 Oxygen Delivery 08/30/24 15:00 08/30/24 21:01 08/30/24 20:00 Temperature 99.3 F Pulse Rate 78 Respiratory Rate 18 Blood Pressure 140/68 Pulse Oximetry 95 Oxygen Delivery Room Air Room Air 08/30/24 21:47 08/31/24 05:35 08/31/24 08:00 Temperature 98.7 F Pulse Rate 86 Respiratory Rate 18 Blood Pressure 151/68 H Pulse Oximetry 95 93 Oxygen Delivery Room Air Room Air Intake/Output Intake/Output: Intake & Output 08/28/24 08/29/24 08/30/24 08/31/24 23:59 23:59 23:59 23:59 Intake Total 1030 1040 Output Total 300 50 Balance 730 990 Meds/Results Medications: Active Medications Generic Name Dose Route Start Last Admin Trade Name Freq PRN Reason Stop Dose Admin Acetaminophen 650 mg 08/30/24 12:35 08/30/24 13:02 Acetaminophen 325 Mg Tablet PO 650 mg Q4H PRN Administration Pain Artificial Tears 1 drop 08/30/24 12:35 Artificial Tears Ophth Soln 15 Ml Bottle LEFT EYE BID PRN Dry Eye(S) Aspirin 81 mg 08/30/24 12:50 08/31/24 07:38 Aspirin 81 Mg Chewable Tablet PO 81 mg DAILY EMMY Administration Atorvastatin Calcium 80 mg 08/30/24 21:00 08/30/24 21:43 Atorvastatin 40 Mg Tablet PO 80 mg HS EMMY Administration Benzocaine 1 lozenge 08/30/24 14:48 Benzocaine/Menthol (*Bkc) 18 Ea Lozenge PO PRN PRN Sore Throat Benzonatate 100 mg 08/30/24 12:35 08/31/24 07:41 Benzonatate 100 Mg Capsule PO 100 mg TID PRN Administration Cough Bupropion HCl 150 mg 08/30/24 12:35 08/31/24 07:38 Bupropion Hcl Sr (12 Hr) 150 Mg Tab PO 150 mg Q12HR EMMY Administration Cyanocobalamin 1,000 mcg 08/30/24 12:50 08/31/24 07:38 Cyanocobalamin 1,000 Mcg Tablet PO 1,000 mcg DAILY EMMY Administration Enoxaparin Sodium 40 mg 08/30/24 12:50 08/31/24 07:37 Enoxaparin 40 Mg/0.4 Ml Syringe SUB-Q 40 mg DAILY EMMY Administration Gabapentin 600 mg 08/30/24 14:00 08/31/24 05:44 Gabapentin 300 Mg Capsule PO 600 mg Q8HR EMMY Administration Guaifenesin 600 mg 08/30/24 21:00 08/31/24 07:37 Guaifenesin 12 Hr 600 Mg Tabcr PO 600 mg Q12HR EMMY Administration Ceftriaxone Sodium 1 gm in 50 mls @ 100 mls/hr 08/31/24 09:00 08/31/24 08:06 Rocephin 1 Gm/Ns 50 Ml IVPB Infused Q24H EMMY Infusion Doxycycline Hyclate 100 mg in 100 mls @ 100 mls/hr 08/30/24 21:00 08/30/24 21:43 Vibramycin 100 Mg/Ns 100 Ml IVPB 100 mls/hr Q24H EMMY Administration Latanoprost 1 drop 08/30/24 21:00 08/30/24 21:44 Latanoprost 0.005% Op Soln 2.5 Ml Btl EACH EYE 1 drop HS EMMY Administration Levothyroxine Sodium 112 mcg 08/31/24 06:30 08/31/24 05:44 Levothyroxine Sodium 112 Mcg Tablet PO 112 mcg DAILY@0630 EMMY Administration Timolol Maleate 1 drop 08/30/24 12:50 08/31/24 07:39 Timolol Maleate 0.5% Op Soln 5 Ml Bottle LEFT EYE 1 drop DAILY EMMY Administration Zolpidem Tartrate 5 mg 08/30/24 21:00 08/30/24 21:43 Zolpidem Tartrate (*Crx) 5 Mg Tablet PO 5 mg HS EMMY Administration Radiology Results: ITS Impressions Chest X-Ray 08/30/24 06:02 Impression: Nonspecific right basilar haziness. Correlate for pneumonia, atelectasis, or chronic changes. Cervical Spine CT 08/30/24 06:07 Impression: No fracture or subluxation of the cervical spine. Extensive degenerative spondylitic changes, as above, similar to prior exam. Head CT 08/30/24 06:09 Impression: No intracranial hemorrhage, mass, or acute infarct. Atrophy and chronic white matter changes, as above. Labs Labs: Laboratory Results - last 24 hr 08/30/24 08/31/24 12:56 05:39 WBC 13.6 H RBC 3.89 L Hgb 12.7 L Hct 38.5 L MCV 99.0 MCH 32.6 MCHC 33.0 RDW 13.0 Plt Count 196 MPV 9.8 Immature Gran % (Auto) 0.7 H Neut % (Auto) 82.8 H Lymph % (Auto) 6.1 L Newton % (Auto) 9.7 H Eos % (Auto) 0.3 Baso % (Auto) 0.4 Lymph # (Auto) 0.82 L Newton # (Auto) 1.3 H Eos # (Auto) 0.0 Baso # (Auto) 0.1 Abs Immat Gran (auto) 0.09 H Absolute Neuts (auto) 11.2 H Absolute Nucleated RBC 0.000 Nucleated RBC % 0.0 Sodium 135 L Potassium 3.4 Chloride 106 Carbon Dioxide 21 L Anion Gap 8 BUN 12 D Creatinine 1.10 Estim Creat Clear Calc 48 Estimated GFR > 60 Glucose 87 Calcium 8.2 L Total Bilirubin 1.6 H AST 69 H ALT 42 Alkaline Phosphatase 100 Total Protein 6.0 L Albumin 3.4 L Nasal MRSA (PCR) Not detected Quality VTE Prophylaxis VTE prophylaxis: mechanical ordered Hospitalist [facility] Advance Care Plan I have confirmed that the patient's Advanced Care Plan is present, code status is documented, or surrogate decision maker is listed in patient medical record.: Yes Medication Reconciliation I have utilized all available resources to obtain, update and review the patients current medications (includes all prescriptions, OTC, herbals, cannabis, and nutritional supplements).: Yes
[2024-08-31 14:00] VITALS: BP 132/60; PULSE 68; RESP 18; TEMP 36.6; O2SAT 96
[2024-08-31 14:20] VITALS: PULSE 64; RESP 18; O2SAT 97
[2024-08-31] MEDS: IPRATROPIUM 0.5 MG/ALBUTEROL SULFATE 2.5 MG AMPUL.NEB 3 ML INHALATION (14:20)
[2024-08-31 14:30] VITALS: PULSE 66; RESP 18
[2024-08-31] MEDS: predniSONE 20 MG TABLET 40 MG PO (14:34)
[2024-08-31] MEDS: BENZONATATE 100 MG CAPSULE 200 MG PO (16:09)
[2024-08-31] MEDS: ENOXAPARIN 80 MG/0.8 ML SYRINGE SUB-Q (16:42)
[2024-08-31 17:41] LABS: Toxigenic C. Diff NEGATIVE (NEGATIVE)
[2024-08-31 20:10] VITALS: BP 145/71; PULSE 80; RESP 16; TEMP 36.2; O2SAT 94
[2024-08-31] MEDS: ATORVASTATIN 40 MG TABLET 80 MG PO (21:23)
[2024-08-31] MEDS: LATANOPROST 0.005% OP SOLN 2.5 ML BTL 1 DROP EACH EYE (21:24)
[2024-08-31] MEDS: DOXYCYCLINE HYCLATE 100 MG TABLET PO (21:24)
[2024-08-31] MEDS: ZOLPIDEM TARTRATE (*CRX) 5 MG TABLET PO (21:25)
[2024-09-01] VITALS (13 sets, daily range): BP systolic 130–134; BP diastolic 56–68; PULSE 57–75; RESP 14–18; TEMP 36.9–37.3; O2SAT 95–99
--- NOTE | 2024-09-01 | ECHO_ITS ---
Patient Info Name: Gamaliel Owusu Age: 78 years : 1945 Gender: Male Ht: 68 in Wt: 185 lbs BSA: 2.03 m2 HR: 70 bpm BP: 134 / 68 mmHg Heart Rhythm: Sinus Rhythm Technical Quality: Good Exam Date: 09/01/2024 9:36 AM Exam Location: Echo Lab Patient Status: Inpatient Admit Date: 08/30/2024 Staff Ordering Physician: Salome Berry APRN Transfer Driver: Niyah Davidson RDCS Attending Provider: Salome Berry APRN Exam Type: CA echo doppler color flow Study Info Indications - acute PE Complete two-dimensional, color flow and Doppler transthoracic echocardiogram is performed. Summary 1. Complete two-dimensional, color flow and Doppler transthoracic echocardiogram is performed. 2. Left ventricular systolic function is normal, estimated at 60-65%. 3. There is no increased left ventricular wall thickness. 4. The left ventricular diastolic function is grade I diastolic dysfunction. 5. Right ventricular chamber dimension is normal. 6. Right ventricular systolic function is normal. 7. There is mild aortic valve regurgitation. 8. There is mild tricuspid valve regurgitation. 9. No pulmonary hypertension, estimated pulmonary arterial systolic pressure is 29 mmHg. Left Ventricle Left ventricular chamber dimension is normal. Left ventricular systolic function is normal, estimated at 60-65%. There is no increased left ventricular wall thickness. Left ventricular septal wall motion is normal. The left ventricular diastolic function is grade I diastolic dysfunction. Right Ventricle Right ventricular chamber dimension is normal. Right ventricular systolic function is normal. Left Atria Left atrial chamber dimension is normal. Right Atria Right atrial chamber dimension is normal. Atrial Septum Intact interatrial septum visualized by 2D imaging. Aortic Valve The aortic valve is trileaflet. There is mild aortic valve sclerosis. There is no aortic valve stenosis. There is mild aortic valve regurgitation. Pulmonic Valve The pulmonic valve is normal. There is no pulmonic valve stenosis. There is no pulmonic regurgitation. Mitral Valve The mitral valve has normal leaflets. There is no mitral valve stenosis. There is no mitral valve regurgitation. Tricuspid Valve The tricuspid valve leaflets are normal. There is no significant tricuspid valve stenosis. There is mild tricuspid valve regurgitation. No pulmonary hypertension, estimated pulmonary arterial systolic pressure is 29 mmHg. Pericardium/Pleural The pericardium appears normal. There is no pericardial effusion. Inferior Vena Cava Not well visualized. Aorta The aortic root size at the sinus of Valsalva is normal. The prox ascending aorta size is normal. Left Ventricular Outflow Tract Name Value Normal LVOT 2D LVOT Diameter 2.0 cm LVOT Doppler LVOT Peak Gradient 5 mmHg LVOT Mean Gradient 3 mmHg LVOT VTI 25 cm LVOT VTI/AV VTI Ratio 1.3 LVOT Stroke Volume 78 ml LVOT CO 5.6 l/min LVOT CI 2.8 l/min/m2 Mitral Valve Name Value Normal MV Doppler MV Decel Bonner 385 cm/s2 MV PHT 54 ms MV Area (PHT) 4.1 cm2 4.0-5.0 MV Diastolic Function MV E Peak Velocity 71 cm/s MV A Peak Velocity 97 cm/s MV E/A 0.7 MV Decel Time 186 ms MV Annular TDI MV E/e' (Septal) 11.3 <=8.0 MV E/e' (Lateral) 10.5 <=8.0 MV E/e' (Average) 10.9 Tricuspid Valve Name Value Normal TV Regurgitation Doppler TR Peak Velocity 247 cm/s TR Peak Gradient 24 mmHg Estimated PAP/RSVP RA Pressure 5 mmHg <=5 PA Systolic Pressure 29 mmHg <36 RV Systolic Pressure 29 mmHg <36 Aortic Valve Name Value Normal AV Doppler AV Peak Velocity 120 cm/s AV Peak Gradient 6 mmHg AV Mean Gradient 3 mmHg AV VTI 20 cm AV Area (Cont Eq VTI) 3.9 cm2 >=3.0 AV Area (Cont Eq Smooth) 2.9 cm2 AV Regurgitation 2D LVOT Area 3.1 cm2 AV Regurgitation Doppler AR Decel Time 2,887 ms AR Decel Bonner 104 cm/s2 AR PHT 837 ms Ventricles Name Value Normal LV Dimensions 2D/MM IVS Diastolic Thickness (2D) 1.0 cm 0.6-1.0 LVID Diastole (2D) 4.5 cm 4.2-5.8 LVIW Diastolic Thickness (2D) 1.1 cm 0.6-1.0 LVID Systole (2D) 2.8 cm 2.5-4.0 LVOT Diameter 2.0 cm LV Mass (2D Cubed) 159.65 g 88.00-224.00 LV Mass Index (2D Cubed) 79 g/m2 49-115 Relative Wall Thickness (2D) 0.47 LV Fractional Shortening/Ejection Fraction 2D/MM LV Fractional Shortening (2D) 38 % 25-43 LV EF (2D Teicholz) 68 % 52-72 LV Diastolic Volume (4C MOD) 124 ml LV EF (4C MOD) 71 % LV Diastolic Volume (2C MOD) 96 ml LV EF (2C MOD) 78 % LV Diastolic Volume (BP MOD) 109 ml 62-150 LV Diastolic Volume Index (BP MOD) 54 ml/m2 34-74 LV Systolic Volume (BP MOD) 29 ml 21-61 LV Systolic Volume Index (BP MOD) 14 ml/m2 11-31 LV EF (BP MOD) 73 % 52-72 LV Diastolic Length (4C) 8.3 cm LV Systolic Length (4C) 6.3 cm LV Stroke Volume (4C MOD) 88 ml Atria Name Value Normal LA Dimensions LA Volume (4C A-L) 29 ml LA Volume (BP A-L) 28 ml RA Dimensions RA Area (4C) 8.2 cm2 <=18.0 Report Signatures
[2024-09-01] MEDS: IPRATROPIUM 0.5 MG/ALBUTEROL SULFATE 2.5 MG AMPUL.NEB 3 ML INHALATION ×4 (00:16→23:19)
[2024-09-01] MEDS: ENOXAPARIN 80 MG/0.8 ML SYRINGE SUB-Q ×2 (05:33→17:25)
[2024-09-01] MEDS: GABAPENTIN 300 MG CAPSULE 600 MG PO ×3 (05:33→21:02)
[2024-09-01] MEDS: LEVOTHYROXINE SODIUM 112 MCG TABLET PO (05:33)
--- NOTE | 2024-09-01 07:15 | PM.IMPN ---
Progress Note: A&P Assessment and Plan (1) Sepsis: Qualifiers: Sepsis acute organ dysfunction status: without acute organ dysfunction Sepsis type: sepsis due to unspecified organism Qualified Code(s): A41.9 - Sepsis, unspecified organism Code(s): A41.9 - Sepsis, unspecified organism Status: Acute Assessment and Plan: Meets SIRS criteria, TLL pneumonia on CT. WBC 15.4>13.6, temp 100, HR up to 97 in the ED, currently afebrile. Bilirubin normalized No hypoxia or hypotension. Lactic acid: 1.6 s/p 1 liter bolus, continued on 100ml/hr - started on ceftriaxone and doxycycline IVPB. Changed doxy to PO. Continue ceftriaxone and doxy - blood cultures drawn on 08/30, follow 08/30 UA: Trace ketones, negative nitrates and WBC's 08/30 CXR: Nonspecific right basilar haziness. Correlate for pneumonia, atelectasis, or chronic changes. 08/31 CT CAP 1. Acute right lower lobe pulmonary emboli. 2. Right-sided pneumonia. 3. Mild emphysema. (2) PNA (pneumonia): Qualifiers: Pneumonia type: due to COVID-19 virus Qualified Code(s): U07.1 - COVID-19; J12.82 - Pneumonia due to coronavirus disease 2019 Code(s): J18.9 - Pneumonia, unspecified organism Status: Acute Assessment and Plan: CXR concerning for right basilar pna. CT also showed a RLL pneumonia - risk factors and complicating factors: [place] resident, COVID - started on CAP tx: ceftriaxone and doxycycline in IVPB on 08/30--continue to 09/06. Can switch Ceftriaxone to PO if improving - MRSA PCR and sputum culture (if obtainable) - Viral PCR: +COVID - no supplemental O2 requirement. Walking O2 prior to discharge (3) Fall from ground level: Code(s): W18.30XA - Fall on same level, unspecified, initial encounter Status: Acute Assessment and Plan: - trauma workup negative for acute fractures/injury: head CT, c-spine CT, and CXR. CT CAP no report of fracutures. Reports acute on chronic left hip pain - fall precautions --X-ray left hip --Avoid NSAIDs with AC - consider PT/OT eval and treat to prevent deconditioning if no improvement with fluids/abx in the next 24 hours (4) Upper respiratory infection: Code(s): J06.9 - Acute upper respiratory infection, unspecified Status: Acute Assessment and Plan: Recent COVID Schedule Tessalon perles 200 TID Duonebs q8, unclear if it will be helpful, so can discontinue if no improvement Prednisone 40mg daily x5 days, treatin for possible COPD exacerbation as well (5) Acute pulmonary embolism: Code(s): I26.99 - Other pulmonary embolism without acute cor pulmonale Status: Acute Assessment and Plan: 08/31 CTA Chest/Abd/pelvis showed an acute right lower lobe emboli 1. Acute right lower lobe pulmonary emboli. 2. Right-sided pneumonia. 3. Mild emphysema. --Started Lovenox 1mg/kg q12, bear check apixaban (6) Hypokalemia: Code(s): E87.6 - Hypokalemia Status: Acute Assessment and Plan: Potassium 3.2 KCL 20meq x2 today, recheck BMP in AM (7) Acute respiratory failure: Code(s): J96.00 - Acute respiratory failure, unspecified whether with hypoxia or hypercapnia Status: Acute Assessment and Plan: Hx smoking. Report shortness of breath, severe cough. Has audible wheezing though sounds primarily post viral, suspect bronchiolitis. Also treating COPD possible exacerbation. --Continue duonebs, reports some improvement --Prednisone x5 days --Treating RLL pneumonia and pulmonary embolism --Symptomatic treatment for cough: tessalon perles 200 TID, guaifenesen DM prn --Reports cough worse with meals and food sticks to his mouth--speech therapy consult for dysphagia. Change diet to soft Plan Initially tested positive for COVID approximately 2-3 weeks ago, has residual positive. Out of window for remdesivir. Diet: Heart healthy GI Prophylaxis: Not currently indicated DVT Prophylaxis: Lovenox SQ Lines: Peripheral Code Status: Full code Time Spent With Patient Time: 55 minutes Subjective Date/time seen: 09/01/24 10:30 Interval history: CT yesterday showed an acute RLL PE, started lovenox Temp 99.1 this morning. Still short of breath, not eating well, feel food is getting stuck when he eats and no appetite Still with a severe cough, faint wheezing, primarily tight, end expiratory. Some improvement with nebs Review of Systems Review of Systems: All systems reviewed & are unremarkable except as noted in HPI and below Exam Narrative: General - Awake and alert. No acute distress Eyes - PERRLA, EOM intact ENT - No thrush, No erythema Neck - No noticeable or palpable swelling Lymph Nodes - No lymphadenopathy Cardiovascular - RRR no m/r/g, no JVD Lungs: End expiratory wheezing, crackles bilaterally, rare use of accessory muscles Skin - Skin warm and dry, no wounds or rashes Abdomen - Normal bowel sounds, abdomen soft and nontender Extremities - No edema, cyanosis or clubbing Musculoskeletal - 5/5 strength, normal range of motion, no swollen or erythematous joints. Neurological ? Alert and oriented x 3, CN 2-12 grossly intact. Psych: Normal mood and affect Extrem: General: normal to inspection Psych: Mental Status: mental status grossly normal Affect: normal affect Other: Fair insight and judgment, pleasant Objective Data Vital Signs Vital Signs: Vital Signs - 24 hr 08/31/24 08:00 08/31/24 14:00 08/31/24 14:20 Temperature 97.8 F Pulse Rate 68 64 Respiratory Rate 18 18 Blood Pressure 132/60 Pulse Oximetry 96 97 Oxygen Delivery Room Air Room Air 08/31/24 14:20 08/31/24 14:30 08/31/24 20:00 Temperature Pulse Rate 64 66 Respiratory Rate 18 18 Blood Pressure Pulse Oximetry Oxygen Delivery Room Air 08/31/24 20:10 09/01/24 00:16 09/01/24 00:19 Temperature 97.1 F L Pulse Rate 80 69 69 Respiratory Rate 16 18 Blood Pressure 145/71 H Pulse Oximetry 94 95 Oxygen Delivery Room Air 09/01/24 00:28 09/01/24 05:25 Temperature 99.1 F Pulse Rate 71 70 Respiratory Rate 18 18 Blood Pressure 134/68 Pulse Oximetry 97 Oxygen Delivery Intake/Output Intake/Output: Intake & Output 08/29/24 08/30/24 08/31/24 09/01/24 23:59 23:59 23:59 23:59 Intake Total 1030 1520 400 Output Total 300 575 Balance 730 945 400 Meds/Results Medications: Active Medications Generic Name Dose Route Start Last Admin Trade Name Freq PRN Reason Stop Dose Admin Acetaminophen 650 mg 08/30/24 12:35 08/30/24 13:02 Acetaminophen 325 Mg Tablet PO 650 mg Q4H PRN Administration Pain Albuterol/Ipratropium 3 ml 08/31/24 14:05 09/01/24 00:16 Ipratropium 0.5 Mg/Albuterol Sulfate 2.5 Mg Ampul.Neb 3 Ml INHALATION 3 ml Q8HRT EMMY Administration Artificial Tears 1 drop 08/30/24 12:35 Artificial Tears Ophth Soln 15 Ml Bottle LEFT EYE BID PRN Dry Eye(S) Aspirin 81 mg 08/30/24 12:50 08/31/24 07:38 Aspirin 81 Mg Chewable Tablet PO 81 mg DAILY EMMY Administration Atorvastatin Calcium 80 mg 08/30/24 21:00 08/31/24 21:23 Atorvastatin 40 Mg Tablet PO 80 mg HS EMMY Administration Benzocaine 1 lozenge 08/30/24 14:48 Benzocaine/Menthol (*Bkc) 18 Ea Lozenge PO PRN PRN Sore Throat Benzonatate 200 mg 08/31/24 17:00 08/31/24 16:09 Benzonatate 100 Mg Capsule PO 200 mg TID EMMY Administration Bupropion HCl 150 mg 08/30/24 12:35 08/31/24 21:24 Bupropion Hcl Sr (12 Hr) 150 Mg Tab PO 150 mg Q12HR EMMY Administration Cyanocobalamin 1,000 mcg 08/30/24 12:50 08/31/24 07:38 Cyanocobalamin 1,000 Mcg Tablet PO 1,000 mcg DAILY EMMY Administration Doxycycline Hyclate 100 mg 08/31/24 21:00 08/31/24 21:24 Doxycycline Hyclate 100 Mg Tablet PO 100 mg Q12HR EMMY Administration Enoxaparin Sodium 80 mg 08/31/24 17:00 09/01/24 05:33 Enoxaparin 80 Mg/0.8 Ml Syringe SUB-Q 80 mg Q12H EMMY Administration Gabapentin 600 mg 08/30/24 14:00 09/01/24 05:33 Gabapentin 300 Mg Capsule PO 600 mg Q8HR EMMY Administration Guaifenesin 600 mg 08/30/24 21:00 08/31/24 21:23 Guaifenesin 12 Hr 600 Mg Tabcr PO 600 mg Q12HR EMMY Administration Ceftriaxone Sodium 1 gm in 50 mls @ 100 mls/hr 08/31/24 09:00 08/31/24 08:06 Rocephin 1 Gm/Ns 50 Ml IVPB Infused Q24H EMMY Infusion Latanoprost 1 drop 08/30/24 21:00 08/31/24 21:24 Latanoprost 0.005% Op Soln 2.5 Ml Btl EACH EYE 1 drop HS EMMY Administration Levothyroxine Sodium 112 mcg 08/31/24 06:30 09/01/24 05:33 Levothyroxine Sodium 112 Mcg Tablet PO 112 mcg DAILY@0630 EMMY Administration Perflutren Lipid Microsphere 0 ml 08/31/24 16:28 Perflutren Lipid Microspheres 1.5 Ml Vial Diluted To 10 Ml Total Volume IV PUSH 09/03/24 16:28 ONCE PRN adequate visualization Protocol Prednisone 40 mg 08/31/24 14:05 08/31/24 14:34 Prednisone 20 Mg Tablet PO 09/04/24 21:00 40 mg DAILY@0800 EMMY Administration Timolol Maleate 1 drop 08/30/24 12:50 08/31/24 07:39 Timolol Maleate 0.5% Op Soln 5 Ml Bottle LEFT EYE 1 drop DAILY EMMY Administration Zolpidem Tartrate 5 mg 08/30/24 21:00 08/31/24 21:25 Zolpidem Tartrate (*Crx) 5 Mg Tablet PO 5 mg HS EMMY Administration Radiology Results: ITS Impressions Chest X-Ray 08/30/24 06:02 Impression: Nonspecific right basilar haziness. Correlate for pneumonia, atelectasis, or chronic changes. Cervical Spine CT 08/30/24 06:07 Impression: No fracture or subluxation of the cervical spine. Extensive degenerative spondylitic changes, as above, similar to prior exam. Head CT 08/30/24 06:09 Impression: No intracranial hemorrhage, mass, or acute infarct. Atrophy and chronic white matter changes, as above. Chest/Abdomen/Pelvis CTA 08/31/24 16:08 IMPRESSION: 1. Acute right lower lobe pulmonary emboli. I called this result to Salome Berry. 2. Right-sided pneumonia. 3. Mild emphysema. Labs Labs: Laboratory Results - last 24 hr 08/31/24 16:43 C. difficile (PCR) Negative Quality VTE Prophylaxis VTE prophylaxis: mechanical ordered and pharmacologic ordered Hospitalist [facility] Advance Care Plan I have confirmed that the patient's Advanced Care Plan is present, code status is documented, or surrogate decision maker is listed in patient medical record.: Yes Medication Reconciliation I have utilized all available resources to obtain, update and review the patients current medications (includes all prescriptions, OTC, herbals, cannabis, and nutritional supplements).: Yes
[2024-09-01] MEDS: buPROPion HCL SR (12 HR) 150 MG TAB PO ×2 (08:36→21:02)
[2024-09-01] MEDS: ASPIRIN 81 MG CHEWABLE TABLET PO (08:36)
[2024-09-01] MEDS: TIMOLOL MALEATE 0.5% OP SOLN 5 ML BOTTLE 1 DROP LEFT EYE (08:37)
[2024-09-01] MEDS: predniSONE 20 MG TABLET 40 MG PO (08:37)
[2024-09-01] MEDS: CYANOCOBALAMIN 1,000 MCG TABLET 1000 MCG PO (08:37)
[2024-09-01] MEDS: BENZONATATE 100 MG CAPSULE 200 MG PO ×3 (08:37→17:18)
[2024-09-01] MEDS: DOXYCYCLINE HYCLATE 100 MG TABLET PO ×2 (08:37→21:02)
[2024-09-01] MEDS: guaiFENesin 12 HR 600 MG TABCR PO ×2 (08:37→21:02)
[2024-09-01 08:45] LABS: Basophils Percent Auto 0.2 % (0.2-1.2); Hematocrit 37.8 % (42.0-52.0); Hemoglobin 12.9 g/dL (14.0-18.0); Immature Granulocyte Absolute 0.06 K/mm3 (0.00-0.031); Immature Granulocyte Percent A 0.5 % (0-0.5); Lymphocytes Percent Auto 6.4 % (18.3-44.2); Mean Corpuscular HGB Conc 34.1 g/dl (32-36); Mean Corpuscular Hemoglobin 33.5 pg (26-34); Mean Corpuscular Volume 98.2 fl (80-100); Mean Platelet Volume 9.6 fl (7.4-10.4); Monocytes Absolute Auto 0.8 K/mm3 (0.1-0.6); Monocytes Percent Auto 7.5 % (2.6-8.5); Neutrophils Absolute Auto 9.4 K/mm3 (1.3-6.7); Neutrophils Percent Auto 85.4 % (45.5-73.1); Platelet Count Result 219 k/mm3 (150-375); Red Blood Count 3.85 M/mm3 (4.6-6.20); Red Cell Distribution Width 12.9 % (11.5-14.5)
[2024-09-01 08:54] LABS: Alanine Aminotransferase 65 U/L (6-50); Albumin Level 3.5 g/dL (3.5-5.1); Alkaline Phosphatase 115 U/L (38-126); Anion Gap 10 mmol/L (4-12); Aspartate Amino Transferase 88 U/L (17-59); Bilirubin,Total 0.8 mg/dL (0.2-1.3); Blood Urea Nitrogen 12 mg/dL (9-20); Calcium 8.8 mg/dL (8.4-10.2); Carbon Dioxide 21 mmol/L (22-30); Chloride 106 mmol/L (98-107); Estimated CRCL calculation 48 ml/min; Estimated Glomerular Filt Rate > 60; Glucose 114 mg/dL (65-110); Potassium 3.2 mmol/L (3.4-5.0); Sodium 137 mmol/L (137-145)
[2024-09-01 08:56] LABS: INR 1.2; Prothrombin Time 15.1 Seconds (11.1-14.7)
[2024-09-01 09:08] LABS: CRP 22.8 mg/dL (<1.0)
[2024-09-01] MEDS: guaiFENesin/DEXTROMETHORPHAN 10 ML UDC PO ×3 (09:15→17:19)
[2024-09-01 10:03] LABS: Erythrocyte Sedimentation Rate 107 mm/hr (0-20)
[2024-09-01 10:10] LABS: D Dimer 2.49 ug/mL (<0.48)
[2024-09-01] MEDS: POTASSIUM CHLORIDE 20 MEQ ER TABLET PO ×2 (11:42→17:19)
[2024-09-01] MEDS: ATORVASTATIN 40 MG TABLET 80 MG PO (21:01)
[2024-09-01] MEDS: ZOLPIDEM TARTRATE (*CRX) 5 MG TABLET PO (21:02)
[2024-09-01] MEDS: LATANOPROST 0.005% OP SOLN 2.5 ML BTL 1 DROP EACH EYE (21:04)
[2024-09-02] VITALS (7 sets, daily range): BP systolic 128–130; BP diastolic 52–68; PULSE 59–88; RESP 12–20; TEMP 36.2–37; O2SAT 95–100
[2024-09-02] MEDS: LEVOTHYROXINE SODIUM 112 MCG TABLET PO (05:34)
[2024-09-02] MEDS: ENOXAPARIN 80 MG/0.8 ML SYRINGE SUB-Q (05:34)
[2024-09-02] MEDS: GABAPENTIN 300 MG CAPSULE 600 MG PO ×3 (05:34→21:38)
[2024-09-02 05:43] LABS: Basophils Percent Auto 0.2 % (0.2-1.2); Hematocrit 36.6 % (42.0-52.0); Hemoglobin 12.3 g/dL (14.0-18.0); Immature Granulocyte Absolute 0.05 K/mm3 (0.00-0.031); Immature Granulocyte Percent A 0.5 % (0-0.5); Lymphocytes Absolute Auto 1.02 K/mm3 (0.9-3.2); Lymphocytes Percent Auto 9.2 % (18.3-44.2); Mean Corpuscular HGB Conc 33.6 g/dl (32-36); Mean Corpuscular Hemoglobin 33.2 pg (26-34); Mean Corpuscular Volume 98.9 fl (80-100); Mean Platelet Volume 9.7 fl (7.4-10.4); Monocytes Absolute Auto 0.8 K/mm3 (0.1-0.6); Monocytes Percent Auto 7.1 % (2.6-8.5); Neutrophils Absolute Auto 9.2 K/mm3 (1.3-6.7); Platelet Count Result 235 k/mm3 (150-375); Red Cell Distribution Width 12.9 % (11.5-14.5); White Blood Count 11.1 K/mm3 (4.5-10.0)
[2024-09-02 05:56] LABS: Alanine Aminotransferase 78 U/L (6-50); Albumin Level 3.2 g/dL (3.5-5.1); Alkaline Phosphatase 102 U/L (38-126); Anion Gap 9 mmol/L (4-12); Aspartate Amino Transferase 93 U/L (17-59); Bilirubin,Total 0.5 mg/dL (0.2-1.3); Blood Urea Nitrogen 15 mg/dL (9-20); Calcium 8.7 mg/dL (8.4-10.2); Carbon Dioxide 23 mmol/L (22-30); Chloride 104 mmol/L (98-107); Estimated CRCL calculation 45 ml/min; Estimated Glomerular Filt Rate 59; Glucose 108 mg/dL (65-110); Potassium 3.5 mmol/L (3.4-5.0); Sodium 136 mmol/L (137-145)
[2024-09-02] MEDS: IPRATROPIUM 0.5 MG/ALBUTEROL SULFATE 2.5 MG AMPUL.NEB 3 ML INHALATION (07:35)
--- NOTE | 2024-09-02 07:44 | P.PNIM_ITS ---
Progress Note: A&P Assessment and Plan (1) Sepsis: Qualifiers: Sepsis acute organ dysfunction status: without acute organ dysfunction Sepsis type: sepsis due to unspecified organism Qualified Code(s): A41.9 - S epsis, unspecified organism Code(s): A41.9 - Sepsis, unspecified organism Status: Acute Assessment and Plan: Meets SIRS criteria, TLL pneumonia on CT. WBC 15.4>13.6, temp 100, HR up to 97 in the ED, currently afebrile. Bilirubin normalized No hypoxia or hypotension. Lactic acid: 1.6 s/p 1 liter bolus, continued on 100ml/hr 08/30 Blood cultures--NGTD--follow final cultures 08/30 UA: Trace ketones, negative nitrates and WBC's 08/30 CXR: Nonspecific right basilar haziness. Correlate for pneumonia, atelectasis, or chronic changes. 08/31 CT CAP 1. Acute right lower lobe pulmonary emboli. 2. Right-sided pneumonia. 3. Mild emphysema. -See treatment of CAP, started empiric ceftiraxone/doxy, change to augmentin (2) PNA (pneumonia): Qualifiers: Pneumonia type: due to COVID-19 virus Qualified Code(s): U07.1 - COVID- 19; J12.82 - Pneumonia due to coronavirus disease 2019 Code(s): J18.9 - Pneumonia, unspecified organism Status: Acute Assessment and Plan: CXR concerning for right basilar pna. CT also showed a RLL pneumonia & PE. Gram positive and gram negative, also evaluate for aspiration, though less likely - risk factors and complicating factors: [place], [place]. Viral PCR: +COVID 08/30 Sputum culture with mixed organisms, few GPC's, GPB's, few WBC's Started on CAP tx: DC ceftriaxone (08/30-09/01) and doxycycline in IV/PO (08/30- 09/01) MRSA PCR negative, dc doxy -- Change ceftriaxone to augumentin (09/02-09/06). --Repeat chest x-ray in 4-6 weeks to document resolution of pneumonia - no supplemental O2 requirement. Walking O2 (3) Fall from ground level: Code(s): W18.30XA - Fall on same level, unspecified, initial encounter Status: Acute Assessment and Plan: Trauma workup negative for acute fractures/injury: head CT, c-spine CT, and CXR. CT CAP no report of fractures. Reports acute on chronic left hip pain - fall precautions --09/01 X-ray left hip showed severe osteoarthritis, no fracture --Avoid NSAIDs with AC - PT/OT eval (4) Upper respiratory infection: Code(s): J06.9 - Acute upper respiratory infection, unspecified Status: Acute Assessment and Plan: Recent COVID Scheduled Tessalon perles 200 TID, Guaifenesin DM PRN Duonebs TID, decrease to daily. Patient reports some improvement with nebs Prednisone 40mg daily x5 days, treating for possible COPD exacerbation as well. Add flovent, can likely discontinue or change to PRN after follow up with PCP (5) Acute pulmonary embolism: Code(s): I26.99 - Other pulmonary embolism without acute cor pulmonale Status: Acute Assessment and Plan: 08/31 CTA Chest/Abd/pelvis showed an acute right lower lobe emboli 1. Acute right lower lobe pulmonary emboli. 2. Right-sided pneumonia. 3. Mild emphysema. --Started Lovenox 1mg/kg q12, change to apixaban today 10 BID x7 days then 5 BID (6) Hypokalemia: Code(s): E87.6 - Hypokalemia Status: Acute Assessment and Plan: Potassium 3.2<3.5 KCL 20meq x2 09/01 & 09/02, recheck BMP in AM (7) Acute respiratory failure: Code(s): J96.00 - Acute respiratory failure, unspecified whether with hypoxia or hypercapnia Status: Acute Assessment and Plan: Hx smoking. Report shortness of breath, severe cough. Has audible wheezing though sounds primarily post viral, suspect bronchiolitis. Also treating COPD possible exacerbation. --Continue duonebs, reports some improvement --Prednisone x5 days--To 09/04 --Start flovent, can likely change to PRN at follow up with PCP if no further symptoms --Outpatient PFT's given smoking history, wheezing --Treating RLL pneumonia and pulmonary embolism --Symptomatic treatment for cough: tessalon perles 200 TID, guaifenesen DM prn --Treat dysphagia (8) Dysphagia: Code(s): R13.10 - Dysphagia, unspecified Status: Acute Assessment and Plan: Reports cough worse with meals and food sticks to his mouth. He reports hard palate feels dry and food sticks to the top of his mouth, causing a cough, but no obvious abnormality on exam. Seems to be able to protect his airway per discussion --speech therapy consult for dysphagia, evaluate aspiration --Changed diet to soft but didn't like the food, resumed regular diet --Trial of saliva substitute rinse, can stop if no change Plan Initially tested positive for COVID approximately 2-3 weeks ago, has residual positive. Out of window for remdesivir. Diet: Regular GI Prophylaxis: Not currently indicated DVT Prophylaxis: Lovenox SQ--change to apixaban Lines: Peripheral Code Status: Full code Time Spent With Patient Time: 45 minutes Subjective Date/time seen: 09/02/24 07:44 Interval history: Frequent cough, not feeling well yet. Not requiring oxygen. Wheezing almost resolved. Walking O2, PT/OT and speech eval Doesn't like the food with a soft diet but may be helping with the issue he's having with food sticking to the top of his mouth and coughing. Feels dry to him but looks normal-trial artificial saliva mouthwash and regular diet. Speech eval to verify no aspiration WBC 15.4>11.1 Potassium 3.2<3.5, repleting Review of Systems Review of Systems: All systems reviewed & are unremarkable except as noted in HPI and below Exam Narrative: General - Awake and alert. No acute distress Eyes - PERRLA, EOM intact ENT - No thrush, No erythema Neck - No noticeable or palpable swelling Lymph Nodes - No lymphadenopathy Cardiovascular - RRR no m/r/g, no JVD Lungs: rare crackles bilaterally, wheezing virtually resolved Skin - Skin warm and dry, no wounds or rashes Abdomen - Normal bowel sounds, abdomen soft and nontender Extremities - No edema, cyanosis or clubbing Musculoskeletal - 5/5 strength, normal range of motion, no swollen or erythematous joints. Neurological ? Alert and oriented x 3, CN 2-12 grossly intact. Psych: Normal mood and affect Objective Data Vital Signs Vital Signs: Vital Signs - 24 hr 09/01/24 14:00 09/01/24 15:51 09/01/24 15:57 Temperature 98.5 F Pulse Rate 64 60 58 L Respiratory Rate 18 18 18 Blood Pressure 132/56 L Pulse Oximetry 97 Oxygen Delivery 09/01/24 20:19 09/01/24 21:05 09/01/24 23:20 Temperature 98.8 F Pulse Rate 65 65 Respiratory Rate 14 18 Blood Pressure 130/62 Pulse Oximetry Oxygen Delivery Room Air 09/01/24 23:21 09/01/24 23:26 09/02/24 05:35 Temperature 97.9 F Pulse Rate 57 L 59 L Respiratory Rate 18 12 Blood Pressure 128/52 L Pulse Oximetry 99 Oxygen Delivery Room Air Intake/Output Intake/Output: Intake & Output 08/30/24 08/31/24 09/01/24 09/02/24 23:59 23:59 23:59 23:59 Intake Total 1030 1520 1040 450 Output Total 300 575 275 750 Balance 730 945 765 -300 Meds/Results Medications: Active Medications Generic Name Dose Route Start Last Admin Trade Name Freq PRN Reason Stop Dose Admin Acetaminophen 650 mg 08/30/24 12:35 08/30/24 13:02 Acetaminophen 325 Mg Tablet PO 650 mg Q4H PRN Administration Pain Albuterol/Ipratropium 3 ml 08/31/24 14:05 09/01/24 23:19 Ipratropium 0.5 Mg/Albuterol Sulfate 2.5 Mg Ampul.Neb 3 Ml INHALATION 3 ml Q8HRT EMMY Administration Artificial Tears 1 drop 08/30/24 12:35 Artificial Tears Ophth Soln 15 Ml Bottle LEFT EYE BID PRN Dry Eye(S) Aspirin 81 mg 08/30/24 12:50 09/01/24 08:36 Aspirin 81 Mg Chewable Tablet PO 81 mg DAILY EMMY Administration Atorvastatin Calcium 80 mg 08/30/24 21:00 09/01/24 21:01 Atorvastatin 40 Mg Tablet PO 80 mg HS EMMY Administration Benzocaine 1 lozenge 08/30/24 14:48 Benzocaine/Menthol (*Bkc) 18 Ea Lozenge PO PRN PRN Sore Throat Benzonatate 200 mg 08/31/24 17:00 09/01/24 17:18 Benzonatate 100 Mg Capsule PO 200 mg TID EMMY Administration Bupropion HCl 150 mg 08/30/24 12:35 09/01/24 21:02 Bupropion Hcl Sr (12 Hr) 150 Mg Tab PO 150 mg Q12HR EMMY Administration Cyanocobalamin 1,000 mcg 08/30/24 12:50 09/01/24 08:37 Cyanocobalamin 1,000 Mcg Tablet PO 1,000 mcg DAILY EMMY Administration Doxycycline Hyclate 100 mg 08/31/24 21:00 09/01/24 21:02 Doxycycline Hyclate 100 Mg Tablet PO 100 mg Q12HR EMMY Administration Enoxaparin Sodium 80 mg 08/31/24 17:00 09/02/24 05:34 Enoxaparin 80 Mg/0.8 Ml Syringe SUB-Q 80 mg Q12H EMMY Administration Gabapentin 600 mg 08/30/24 14:00 09/02/24 05:34 Gabapentin 300 Mg Capsule PO 600 mg Q8HR EMMY Administration Guaifenesin 600 mg 08/30/24 21:00 09/01/24 21:02 Guaifenesin 12 Hr 600 Mg Tabcr PO 600 mg Q12HR EMMY Administration Guaifenesin/Dextromethorphan 10 ml 09/01/24 07:23 09/01/24 17:19 Guaifenesin/Dextromethorphan 10 Ml Udc PO 10 ml Q4H PRN Administration Cough Ceftriaxone Sodium 1 gm in 50 mls @ 100 mls/hr 08/31/24 09:00 09/01/24 08:37 Rocephin 1 Gm/Ns 50 Ml IVPB 100 mls/hr Q24H EMMY Administration Latanoprost 1 drop 08/30/24 21:00 09/01/24 21:04 Latanoprost 0.005% Op Soln 2.5 Ml Btl EACH EYE 1 drop HS EMMY Administration Levothyroxine Sodium 112 mcg 08/31/24 06:30 09/02/24 05:34 Levothyroxine Sodium 112 Mcg Tablet PO 112 mcg DAILY@0630 EMMY Administration Perflutren Lipid Microsphere 0 ml 08/31/24 16:28 Perflutren Lipid Microspheres 1.5 Ml Vial Diluted To 10 Ml Total Volume IV PUSH 09/03/24 16:28 ONCE PRN adequate visualization Protocol Prednisone 40 mg 08/31/24 14:05 09/01/24 08:37 Prednisone 20 Mg Tablet PO 09/04/24 21:00 40 mg DAILY@0800 EMMY Administration Timolol Maleate 1 drop 08/30/24 12:50 10/05/24 08:37 Timolol Maleate 0.5% Op Soln 5 Ml Bottle LEFT EYE 1 drop DAILY EMMY Administration Zolpidem Tartrate 5 mg 08/30/24 21:00 09/01/24 21:02 Zolpidem Tartrate (*Crx) 5 Mg Tablet PO 5 mg HS EMMY Administration Radiology Results: ITS Impressions Chest X-Ray 08/30/24 06:02 Impression: Nonspecific right basilar haziness. Correlate for pneumonia, atelectasis, or chronic changes. Cervical Spine CT 08/30/24 06:07 Impression: No fracture or subluxation of the cervical spine. Extensive degenerative spondylitic changes, as above, similar to prior exam. Head CT 08/30/24 06:09 Impression: No intracranial hemorrhage, mass, or acute infarct. Atrophy and chronic white matter changes, as above. Chest/Abdomen/Pelvis CTA 08/31/24 16:08 IMPRESSION: 1. Acute right lower lobe pulmonary emboli. I called this result to Salome Berry. 2. Right-sided pneumonia. 3. Mild emphysema. Hip X-Ray 09/01/24 14:10 IMPRESSION: No acute osseous finding in the left hip. Labs Labs: Laboratory Results - last 24 hr 09/01/24 09/02/24 08:19 05:02 WBC 11.0 H 11.1 H RBC 3.85 L 3.70 L Hgb 12.9 L 12.3 L Hct 37.8 L 36.6 L MCV 98.2 98.9 MCH 33.5 33.2 MCHC 34.1 33.6 RDW 12.9 12.9 Plt Count 219 235 MPV 9.6 9.7 Immature Gran % (Auto) 0.5 0.5 Neut % (Auto) 85.4 H 83.0 H Lymph % (Auto) 6.4 L 9.2 L [place] % (Auto) 7.5 7.1 Eos % (Auto) 0.0 0.0 Baso % (Auto) 0.2 0.2 Lymph # (Auto) 0.70 L 1.02 [place] # (Auto) 0.8 H 0.8 H Eos # (Auto) 0.0 0.0 Baso # (Auto) 0.0 0.0 Abs Immat Gran (auto) 0.06 H 0.05 H Absolute Neuts (auto) 9.4 H 9.2 H Absolute Nucleated RBC 0.000 0.000 Nucleated RBC % 0.0 0.0 ESR 107 H PT 15.1 H INR 1.2 D-Dimer 2.49 H Sodium 137 136 L Potassium 3.2 L 3.5 Chloride 106 104 Carbon Dioxide 21 L 23 Anion Gap 10 9 BUN 12 15 Creatinine 1.10 1.20 Estim Creat Clear Calc 48 45 Estimated GFR > 60 59 Glucose 114 H 108 Calcium 8.8 8.7 Total Bilirubin 0.8 0.5 AST 88 H 93 H ALT 65 H 78 H Alkaline Phosphatase 115 102 C-Reactive Protein 22.8 H Total Protein 7.0 6.0 L Albumin 3.5 3.2 L Quality VTE Prophylaxis VTE prophylaxis: mechanical ordered and pharmacologic ordered Hospitalist MIPS Advance Care Plan I have confirmed that the patient's Advanced Care Plan is present, code status is documented, or surrogate decision maker is listed in patient medical record.: Yes Medication Reconciliation I have utilized all available resources to obtain, update and review the patients current medications (includes all prescriptions, OTC, herbals, cannabis, and nutritional supplements).: Yes
[2024-09-02] MEDS: ASPIRIN 81 MG CHEWABLE TABLET PO (10:10)
[2024-09-02] MEDS: predniSONE 20 MG TABLET 40 MG PO (10:10)
[2024-09-02] MEDS: BENZONATATE 100 MG CAPSULE 200 MG PO ×3 (10:11→17:14)
[2024-09-02] MEDS: CYANOCOBALAMIN 1,000 MCG TABLET 1000 MCG PO (10:11)
[2024-09-02] MEDS: buPROPion HCL SR (12 HR) 150 MG TAB PO ×2 (10:11→21:38)
[2024-09-02] MEDS: DOXYCYCLINE HYCLATE 100 MG TABLET PO (10:11)
[2024-09-02] MEDS: guaiFENesin 12 HR 600 MG TABCR PO ×2 (10:11→21:38)
[2024-09-02] MEDS: POTASSIUM CHLORIDE 20 MEQ ER TABLET PO ×2 (10:13→17:13)
[2024-09-02] MEDS: APIXABAN 5 MG TABLET 10 MG PO ×2 (10:13→21:38)
[2024-09-02] MEDS: SALIVA SUBSTITUTE RINSE 473 ML BOTTLE 15 ML PO ×4 (10:14→21:37)
[2024-09-02] MEDS: AMOXICILLIN/CLAVULANATE K 875-125 MG TAB 1 TABLET PO ×2 (10:14→21:38)
[2024-09-02] MEDS: TIMOLOL MALEATE 0.5% OP SOLN 5 ML BOTTLE 1 DROP LEFT EYE (10:14)
--- NOTE | 2024-09-02 10:46 | PCSTNOTE ---
Please refer to the Bedside Swallow Evaluation in the EMR. Please note, silent aspiration cannot be ruled out at bedside.
[2024-09-02] MEDS: IPRATROPIUM 0.5 MG/ALBUTEROL SULFATE 2.5 MG AMPUL.NEB 3 ML NEBULIZE (11:33)
[2024-09-02] MEDS: FLUTICASONE PROP 110 MCG INHALER 12 GM (*SP) 2 PUFF INHALATION (20:34)
[2024-09-02] MEDS: LATANOPROST 0.005% OP SOLN 2.5 ML BTL 1 DROP EACH EYE (21:37)
[2024-09-02] MEDS: ATORVASTATIN 40 MG TABLET 80 MG PO (21:38)
[2024-09-02] MEDS: ZOLPIDEM TARTRATE (*CRX) 5 MG TABLET PO (21:38)
[2024-09-03 04:40] VITALS: BP 138/78; PULSE 64; RESP 20; TEMP 36.8; O2SAT 97
[2024-09-03] MEDS: GABAPENTIN 300 MG CAPSULE 600 MG PO ×3 (05:20→21:38)
[2024-09-03] MEDS: LEVOTHYROXINE SODIUM 112 MCG TABLET PO (05:21)
[2024-09-03 06:16] LABS: Basophils Percent Auto 0.1 % (0.2-1.2); Eosinophils Percent Auto 0.1 % (0-4.4); Hematocrit 37.5 % (42.0-52.0); Hemoglobin 12.6 g/dL (14.0-18.0); Immature Granulocyte Absolute 0.04 K/mm3 (0.00-0.031); Immature Granulocyte Percent A 0.5 % (0-0.5); Lymphocytes Percent Auto 10.2 % (18.3-44.2); Mean Corpuscular HGB Conc 33.6 g/dl (32-36); Mean Corpuscular Hemoglobin 33.2 pg (26-34); Mean Corpuscular Volume 98.7 fl (80-100); Mean Platelet Volume 9.5 fl (7.4-10.4); Monocytes Absolute Auto 0.7 K/mm3 (0.1-0.6); Monocytes Percent Auto 7.9 % (2.6-8.5); Neutrophils Absolute Auto 7.2 K/mm3 (1.3-6.7); Neutrophils Percent Auto 81.2 % (45.5-73.1); Platelet Count Result 234 k/mm3 (150-375); White Blood Count 8.8 K/mm3 (4.5-10.0)
[2024-09-03 06:32] LABS: Alanine Aminotransferase 81 U/L (6-50); Albumin Level 3.3 g/dL (3.5-5.1); Alkaline Phosphatase 86 U/L (38-126); Anion Gap 6 mmol/L (4-12); Aspartate Amino Transferase 68 U/L (17-59); Bilirubin,Total 0.6 mg/dL (0.2-1.3); Blood Urea Nitrogen 20 mg/dL (9-20); Calcium 8.8 mg/dL (8.4-10.2); Carbon Dioxide 26 mmol/L (22-30); Chloride 104 mmol/L (98-107); Estimated CRCL calculation 45 ml/min; Estimated Glomerular Filt Rate 59; Glucose 93 mg/dL (65-110); Potassium 4.2 mmol/L (3.4-5.0); Sodium 136 mmol/L (137-145)
[2024-09-03 07:41] LABS: Atypical Lymphocytes Present; Platelet Estimate Adequate (Adequate); Schistocytes None Seen
[2024-09-03] MEDS: TIMOLOL MALEATE 0.5% OP SOLN 5 ML BOTTLE 1 DROP LEFT EYE (07:48)
[2024-09-03] MEDS: predniSONE 20 MG TABLET 40 MG PO (07:49)
[2024-09-03] MEDS: ASPIRIN 81 MG CHEWABLE TABLET PO (07:49)
[2024-09-03] MEDS: BENZONATATE 100 MG CAPSULE 200 MG PO ×3 (07:49→17:29)
[2024-09-03] MEDS: AMOXICILLIN/CLAVULANATE K 875-125 MG TAB 1 TABLET PO ×2 (07:49→21:38)
[2024-09-03] MEDS: guaiFENesin 12 HR 600 MG TABCR PO ×2 (07:49→21:38)
[2024-09-03] MEDS: APIXABAN 5 MG TABLET 10 MG PO ×2 (07:49→21:38)
[2024-09-03] MEDS: CYANOCOBALAMIN 1,000 MCG TABLET 1000 MCG PO (07:49)
[2024-09-03] MEDS: IPRATROPIUM 0.5 MG/ALBUTEROL SULFATE 2.5 MG AMPUL.NEB 3 ML NEBULIZE (07:50)
[2024-09-03] MEDS: SALIVA SUBSTITUTE RINSE 473 ML BOTTLE 15 ML PO ×3 (07:50→21:38)
[2024-09-03 07:51] VITALS: PULSE 86; RESP 20; O2SAT 96
[2024-09-03] MEDS: buPROPion HCL SR (12 HR) 150 MG TAB PO ×2 (07:53→21:38)
[2024-09-03 07:57] VITALS: PULSE 84; RESP 20
[2024-09-03] MEDS: FLUTICASONE PROP 110 MCG INHALER 12 GM (*SP) 2 PUFF INHALATION ×2 (07:57→20:34)
--- NOTE | 2024-09-03 08:14 | P.PNIM_ITS ---
Progress Note: A&P Assessment and Plan (1) Fall from ground level: Code(s): W18.30XA - Fall on same level, unspecified, initial encounter Status: Acute Assessment and Plan: Trauma workup negative for acute fractures/injury: head CT, c-spine CT, and CXR. CTA CAP no report of fractures. Reports acute on chronic left hip pain - fall precautions --09/01 X-ray left hip showed severe osteoarthritis, no fracture --Avoid NSAIDs with AC - PT/OT eval (2) Acute respiratory failure: Code(s): J96.00 - Acute respiratory failure, unspecified whether with hypoxia or hypercapnia Status: Acute Assessment and Plan: Hx smoking. Report shortness of breath, severe cough. Has audible wheezing though sounds primarily post viral, suspect bronchiolitis. Also treating COPD possible exacerbation. - requiring 2L NC, continue to wean as tolerated --Continue duonebs, reports some improvement --Prednisone x5 days--To 09/04 --Start flovent, can likely change to PRN at follow up with PCP if no further symptoms --Outpatient PFT's given smoking history, wheezing --Treating RLL pneumonia and pulmonary embolism --Symptomatic treatment for cough: tessalon perles 200 TID, guaifenesen DM prn --Treat dysphagia (3) Sepsis: Qualifiers: Sepsis acute organ dysfunction status: without acute organ dysfunction Sepsis type: sepsis due to unspecified organism Qualified Code(s): A41.9 - Sepsis, unspecified organism Code(s): A41.9 - Sepsis, unspecified organism Status: Acute Assessment and Plan: Meets SIRS criteria, TLL pneumonia on CT. WBC 15.4>13.6, temp 100, HR up to 97 in the ED, currently afebrile. Bilirubin normalized No hypoxia or hypotension. Lactic acid: 1.6 s/p 1 liter bolus, continued on 100ml/hr 08/30 Blood cultures--NGTD--follow final cultures 08/30 UA: Trace ketones, negative nitrates and WBC's 08/30 sputum culture: Growth of normal oropharyngeal nelson 08/30 CXR: Nonspecific right basilar haziness. Correlate for pneumonia, atelectasis, or chronic changes. 08/31 CTA CAP 1. Acute right lower lobe pulmonary emboli. 2. Right-sided pneumonia. 3. Mild emphysema. -See treatment of CAP, started empiric ceftriaxone/doxy, change to Augmentin (4) PNA (pneumonia): Qualifiers: Pneumonia type: due to COVID-19 virus Qualified Code(s): U07.1 - COVID- 19; J12.82 - Pneumonia due to coronavirus disease 2019 Code(s): J18.9 - Pneumonia, unspecified organism Status: Acute Assessment and Plan: - risk factors and complicating factors: NH resident, COVID. Viral PCR: +COVID 08/30 CXR: Nonspecific right basilar haziness. Correlate for pneumonia, atelectasis, or chronic changes. 08/31 CTA CAP 1. Acute right lower lobe pulmonary emboli. 2. Right-sided pneumonia. 3. Mild emphysema. - Started on CAP tx: DC ceftriaxone (08/30-09/01) and doxycycline in IV/PO (08/30- 09/01) MRSA PCR negative, dc doxy. Change ceftriaxone to augumentin (09/02-09/06). - also evaluate for aspiration, though less likely Speech therapy consulted, no further interventions required MBS: Easy to chew level 7 or soft and bite sized level 6 with regular liquids - Viral PCR: negative for Flu/COVID/RSV - 08/30 Blood cultures--NGTD--follow final cultures - sputum culture: Growth of normal oropharyngeal nelson - Monitor vital signs, I&Os, neuro status and patient is a fall risk - Follow WBC, serum electrolytes, temperature curves and cultures (5) Acute pulmonary embolism: Code(s): I26.99 - Other pulmonary embolism without acute cor pulmonale Status: Acute Assessment and Plan: 08/31 CTA Chest/Abd/pelvis showed an acute right lower lobe emboli 1. Acute right lower lobe pulmonary emboli. 2. Right-sided pneumonia. 3. Mild emphysema. Started Lovenox 1mg/kg q12, change to apixaban on 09/02 (10 BID x7 days then 5 BI D) Monitor vital signs, I&Os, shortness of breath and chest pain. Patient is a fall risk Monitor serum electrolytes, PTT, CBC, WBC, temperature curve and cultures. Oxygen via NC; wean as tolerated keeping SpO2 above 88% (6) Upper respiratory infection: Code(s): J06.9 - Acute upper respiratory infection, unspecified Status: Acute Assessment and Plan: Recent COVID Scheduled Tessalon perles 200 TID, Guaifenesin DM PRN Duonebs TID, decrease to daily. Patient reports some improvement with nebs Prednisone 40mg daily x5 days, treating for possible COPD exacerbation as well. Add flovent, can likely discontinue or change to PRN after follow up with PCP (7) Hypokalemia: Code(s): E87.6 - Hypokalemia Status: Acute Assessment and Plan: Potassium 3.2<3.5 KCL 20meq x2 09/01 & 09/02, recheck BMP in AM 09/03: K 4.2 (8) Dysphagia: Code(s): R13.10 - Dysphagia, unspecified Status: Acute Assessment and Plan: Reports cough worse with meals and food sticks to his mouth. He reports hard palate feels dry and food sticks to the top of his mouth, causing a cough, but no obvious abnormality on exam. Seems to be able to protect his airway per discussion --speech therapy consult for dysphagia, evaluate aspiration --Changed diet to soft but didn't like the food, resumed regular diet -- MBS: Easy to chew level 7 or soft and bite sized level 6 with regular liquids --Trial of saliva substitute rinse, can stop if no change Plan Initially tested positive for COVID approximately 2-3 weeks ago, has residual positive. Out of window for remdesivir. Diet: Regular GI Prophylaxis: Not currently indicated DVT Prophylaxis: Lovenox SQ--change to apixaban Lines: Peripheral Code Status: Full code Time Spent With Patient Time with patient: 25 - 35 minutes Subjective Date/time seen: 09/03/24 08:14 Interval history: 78 y/o M presents here with ground-level fall, weakness, and shortness of breath with PMH of [place], CAD with 7 stents placed, and hypothyroidism. Patient is pleasant lying in bed. He continues to endorse slight shortness of breath but says this has improved since admission. He denies any chest pain or palpitations. He remains on antibiotics for the pneumonia and eliquis for the PE. Review of Systems Review of Systems: All systems reviewed & are unremarkable except as noted in HPI and below Exam Narrative: AF HR 59 RR 20 SPO2 98 BP 136/61 General: male in no acute respiratory distress who is nontoxic appearing, lying semi recumbent in bed. HEENT: Normocephalic. Atraumatic. Extraocular movement intact. Sclera clear and anicteric. No facial asymmetry. Chest: Lungs are diminished to auscultation bilaterally. No wheezes or crackles. CV: Heart was regular rate and rhythm. S1/S2. No murmurs, gallops, or rubs. Abd: Abdomen was soft. Nontender. Nondistended. Positive bowel sounds. No organomegaly or masses. Ext: No clubbing, cyanosis, or edema. 2+ DP pulses bilaterally. Neuro: Patient is alert.. Cranial nerves 2-12 are intact. Speech is clear. Objective Data Vital Signs Vital Signs: Vital Signs - 24 hr 09/02/24 11:41 09/02/24 14:00 09/02/24 20:34 Temperature 97.1 F L Pulse Rate 88 68 67 Respiratory Rate 18 16 18 Blood Pressure 130/68 Pulse Oximetry 100 Oxygen Delivery Fraction of Inspired Oxygen 09/02/24 21:35 09/02/24 20:20 09/03/24 04:40 Temperature 98.6 F 98.3 F Pulse Rate 64 64 Respiratory Rate 20 20 Blood Pressure 128/62 138/78 Pulse Oximetry 96 97 Oxygen Delivery Room Air Fraction of Inspired Oxygen 09/03/24 07:55 09/03/24 07:51 09/03/24 07:51 Temperature Pulse Rate 86 Respiratory Rate 20 Blood Pressure Pulse Oximetry 96 Oxygen Delivery Room Air Room Air Fraction of Inspired Oxygen 21 09/03/24 07:57 Temperature Pulse Rate 84 Respiratory Rate 20 Blood Pressure Pulse Oximetry Oxygen Delivery Fraction of Inspired Oxygen Intake/Output Intake/Output: Intake & Output 08/31/24 09/01/24 09/02/24 09/03/24 23:59 23:59 23:59 23:59 Intake Total 1520 1040 3220 400 Output Total 575 791 342 9520 Balance 532 986 83742 988 4084 -044 Meds/Results Medications: Active Medications Generic Name Dose Route Start Last Admin Trade Name Freq PRN Reason Stop Dose Admin Acetaminophen 650 mg 08/30/24 12:35 08/30/24 13:02 Acetaminophen 325 Mg Tablet PO 650 mg Q4H PRN Administration Pain Albuterol/Ipratropium 3 ml 09/02/24 12:00 09/03/24 07:50 Ipratropium 0.5 Mg/Albuterol Sulfate 2.5 Mg Ampul.Neb 3 Ml NEBULIZE 3 ml DAILYRT EMMY Administration Amoxicillin/Clavulanate Potassium 1 tablet 09/02/24 09:15 09/03/24 07:49 Amoxicillin/Clavulanate K 875-125 Mg Tab PO 1 tablet Q12HR EMMY Administration Apixaban 10 mg 09/02/24 09:00 09/03/24 07:49 Apixaban 5 Mg Tablet PO 09/08/24 23:55 10 mg Q12HR EMMY Administration Apixaban 5 mg 09/09/24 09:00 Apixaban 5 Mg Tablet PO Q12HR EMMY Artificial Tears 1 drop 08/30/24 12:35 Artificial Tears Ophth Soln 15 Ml Bottle LEFT EYE BID PRN Dry Eye(S) Aspirin 81 mg 08/30/24 12:50 09/03/24 07:49 Aspirin 81 Mg Chewable Tablet PO 81 mg DAILY EMMY Administration Atorvastatin Calcium 80 mg 08/30/24 21:00 09/02/24 21:38 Atorvastatin 40 Mg Tablet PO 80 mg HS EMMY Administration Benzocaine 1 lozenge 08/30/24 14:48 Benzocaine/Menthol (*Bkc) 18 Ea Lozenge PO PRN PRN Sore Throat Benzonatate 200 mg 08/31/24 17:00 09/03/24 07:49 Benzonatate 100 Mg Capsule PO 200 mg TID EMMY Administration Bupropion HCl 150 mg 08/30/24 12:35 09/03/24 07:53 Bupropion Hcl Sr (12 Hr) 150 Mg Tab PO 150 mg Q12HR EMMY Administration Cyanocobalamin 1,000 mcg 08/30/24 12:50 09/03/24 07:49 Cyanocobalamin 1,000 Mcg Tablet PO 1,000 mcg DAILY EMMY Administration Fluticasone Propionate 2 puff 09/02/24 08:00 09/03/24 07:57 Fluticasone Prop 110 Mcg Inhaler 12 Gm (*Sp) INHALATION 2 puff Q12HRT EMMY Administration Gabapentin 600 mg 08/30/24 14:00 09/03/24 05:20 Gabapentin 300 Mg Capsule PO 600 mg Q8HR EMMY Administration Guaifenesin 600 mg 08/30/24 21:00 09/03/24 07:49 Guaifenesin 12 Hr 600 Mg Tabcr PO 600 mg Q12HR EMMY Administration Guaifenesin/Dextromethorphan 10 ml 09/01/24 07:23 09/01/24 17:19 Guaifenesin/Dextromethorphan 10 Ml Udc PO 10 ml Q4H PRN Administration Cough Latanoprost 1 drop 08/30/24 21:00 09/02/24 21:37 Latanoprost 0.005% Op Soln 2.5 Ml Btl EACH EYE 1 drop HS EMMY Administration Levothyroxine Sodium 112 mcg 08/31/24 06:30 09/03/24 05:21 Levothyroxine Sodium 112 Mcg Tablet PO 112 mcg DAILY@0630 EMMY Administration Perflutren Lipid Microsphere 0 ml 08/31/24 16:28 Perflutren Lipid Microspheres 1.5 Ml Vial Diluted To 10 Ml Total Volume IV PUSH 09/03/24 16:28 ONCE PRN adequate visualization Protocol Prednisone 40 mg 08/31/24 14:05 09/03/24 07:49 Prednisone 20 Mg Tablet PO 09/04/24 21:00 40 mg DAILY@0800 EMMY Administration Saliva Substitute 15 ml 09/02/24 09:00 09/03/24 07:50 Saliva Substitute Rinse 473 Ml Bottle PO 15 ml QID EMMY Administration Timolol Maleate 1 drop 08/30/24 12:50 09/03/24 07:48 Timolol Maleate 0.5% Op Soln 5 Ml Bottle LEFT EYE 1 drop DAILY EMMY Administration Zolpidem Tartrate 5 mg 08/30/24 21:00 09/02/24 21:38 Zolpidem Tartrate (*Crx) 5 Mg Tablet PO 5 mg HS EMMY Administration Radiology Results: ITS Impressions Chest X-Ray 08/30/24 06:02 Impression: Nonspecific right basilar haziness. Correlate for pneumonia, atelectasis, or chronic changes. Cervical Spine CT 08/30/24 06:07 Impression: No fracture or subluxation of the cervical spine. Extensive degenerative spondylitic changes, as above, similar to prior exam. Head CT 08/30/24 06:09 Impression: No intracranial hemorrhage, mass, or acute infarct. Atrophy and chronic white matter changes, as above. Chest/Abdomen/Pelvis CTA 08/31/24 16:08 IMPRESSION: 1. Acute right lower lobe pulmonary emboli. I called this result to Salome Berry. 2. Right-sided pneumonia. 3. Mild emphysema. Hip X-Ray 09/01/24 14:10 IMPRESSION: No acute osseous finding in the left hip. Labs Labs: Laboratory Results - last 24 hr 09/03/24 05:57 WBC 8.8 RBC 3.80 L Hgb 12.6 L Hct 37.5 L MCV 98.7 MCH 33.2 MCHC 33.6 RDW 13.0 Plt Count 234 MPV 9.5 Immature Gran % (Auto) 0.5 Neut % (Auto) 81.2 H Lymph % (Auto) 10.2 L Heard % (Auto) 7.9 Eos % (Auto) 0.1 Baso % (Auto) 0.1 L Lymph # (Auto) 0.90 Heard # (Auto) 0.7 H Eos # (Auto) 0.0 Baso # (Auto) 0.0 Abs Immat Gran (auto) 0.04 H Absolute Neuts (auto) 7.2 H Absolute Nucleated RBC 0.000 Nucleated RBC % 0.0 Atypical Lymphocytes Present Platelet Estimate Adequate Schistocytes None seen Sodium 136 L Potassium 4.2 Chloride 104 Carbon Dioxide 26 Anion Gap 6 BUN 20 Creatinine 1.20 Estim Creat Clear Calc 45 Estimated GFR 59 Glucose 93 Calcium 8.8 Total Bilirubin 0.6 AST 68 H ALT 81 H Alkaline Phosphatase 86 Total Protein 6.0 L Albumin 3.3 L Quality VTE Prophylaxis VTE prophylaxis: mechanical ordered and pharmacologic ordered
--- NOTE | 2024-09-03 09:21 | PCSTNOTE ---
Please refer to the Modified Barium Swallow Evaluation in the EMR.
--- NOTE | 2024-09-03 11:44 | PCOTNOTE ---
Attempted to see pt for OT evaluation however pt reports fatigue and dizziness after being up multiple times this morning and just finishing a bath. Will continue to follow.
--- NOTE | 2024-09-03 11:51 | PC.NURSE ---
On 09/03/24, the student, [Cristian Lyon], provided care and completed [facility] documentation on this patient. I have reviewed the student's documentation and agree with the findings.
[2024-09-03 14:00] VITALS: BP 136/61; PULSE 59; RESP 20; TEMP 36.4; O2SAT 98
[2024-09-03] MEDS: guaiFENesin/DEXTROMETHORPHAN 10 ML UDC PO (14:28)
[2024-09-03 20:35] VITALS: PULSE 65; RESP 18; O2SAT 97
[2024-09-03 21:00] VITALS: BP 147/57; PULSE 56; RESP 20; TEMP 36.2; O2SAT 97
[2024-09-03] MEDS: ZOLPIDEM TARTRATE (*CRX) 5 MG TABLET PO (21:38)
[2024-09-03] MEDS: ATORVASTATIN 40 MG TABLET 80 MG PO (21:38)
[2024-09-03] MEDS: LATANOPROST 0.005% OP SOLN 2.5 ML BTL 1 DROP EACH EYE (21:39)
[2024-09-04] MEDS: LEVOTHYROXINE SODIUM 112 MCG TABLET PO (05:22)
[2024-09-04] MEDS: GABAPENTIN 300 MG CAPSULE 600 MG PO ×2 (05:22→13:18)
[2024-09-04 05:25] VITALS: BP 140/71; PULSE 60; RESP 18; TEMP 36.9; O2SAT 97
[2024-09-04 06:34] LABS: Basophils Percent Auto 0.2 % (0.2-1.2); Eosinophils Percent Auto 0.2 % (0-4.4); Hematocrit 39.7 % (42.0-52.0); Hemoglobin 13.6 g/dL (14.0-18.0); Immature Granulocyte Absolute 0.03 K/mm3 (0.00-0.031); Immature Granulocyte Percent A 0.3 % (0-0.5); Lymphocytes Absolute Auto 1.35 K/mm3 (0.9-3.2); Lymphocytes Percent Auto 14.9 % (18.3-44.2); Mean Corpuscular HGB Conc 34.3 g/dl (32-36); Mean Corpuscular Hemoglobin 33.7 pg (26-34); Mean Corpuscular Volume 98.5 fl (80-100); Mean Platelet Volume 9.3 fl (7.4-10.4); Monocytes Absolute Auto 0.9 K/mm3 (0.1-0.6); Monocytes Percent Auto 9.8 % (2.6-8.5); Neutrophils Absolute Auto 6.7 K/mm3 (1.3-6.7); Neutrophils Percent Auto 74.6 % (45.5-73.1); Platelet Count Result 272 k/mm3 (150-375); Red Blood Count 4.03 M/mm3 (4.6-6.20); White Blood Count 9.1 K/mm3 (4.5-10.0)
[2024-09-04 06:43] LABS: Alanine Aminotransferase 95 U/L (6-50); Albumin Level 3.4 g/dL (3.5-5.1); Alkaline Phosphatase 88 U/L (38-126); Anion Gap 8 mmol/L (4-12); Aspartate Amino Transferase 90 U/L (17-59); Bilirubin,Total 0.7 mg/dL (0.2-1.3); Blood Urea Nitrogen 22 mg/dL (9-20); Calcium 8.9 mg/dL (8.4-10.2); Carbon Dioxide 26 mmol/L (22-30); Chloride 103 mmol/L (98-107); Estimated CRCL calculation 41 ml/min; Estimated Glomerular Filt Rate 54; Glucose 92 mg/dL (65-110); Potassium 3.9 mmol/L (3.4-5.0); Sodium 137 mmol/L (137-145)
[2024-09-04 07:10] VITALS: PULSE 54; RESP 16; O2SAT 96
[2024-09-04] MEDS: FLUTICASONE PROP 110 MCG INHALER 12 GM (*SP) 2 PUFF INHALATION (07:15)
[2024-09-04] MEDS: buPROPion HCL SR (12 HR) 150 MG TAB PO (08:23)
[2024-09-04] MEDS: AMOXICILLIN/CLAVULANATE K 875-125 MG TAB 1 TABLET PO (08:23)
[2024-09-04] MEDS: ASPIRIN 81 MG CHEWABLE TABLET PO (08:23)
[2024-09-04] MEDS: APIXABAN 5 MG TABLET 10 MG PO (08:23)
[2024-09-04] MEDS: BENZONATATE 100 MG CAPSULE 200 MG PO ×2 (08:23→13:17)
[2024-09-04] MEDS: guaiFENesin 12 HR 600 MG TABCR PO (08:23)
[2024-09-04] MEDS: predniSONE 20 MG TABLET 40 MG PO (08:23)
[2024-09-04] MEDS: CYANOCOBALAMIN 1,000 MCG TABLET 1000 MCG PO (08:23)
[2024-09-04] MEDS: SALIVA SUBSTITUTE RINSE 473 ML BOTTLE 15 ML PO ×2 (08:23→13:18)
[2024-09-04] MEDS: TIMOLOL MALEATE 0.5% OP SOLN 5 ML BOTTLE 1 DROP LEFT EYE (08:24)
[2024-09-04 14:00] VITALS: BP 167/79; PULSE 63; RESP 16; TEMP 36.3; O2SAT 96
--- NOTE | 2024-09-04 17:14 | P.DS_ITS ---
DS: Admitting Diagnosis Discharge Date 09/04/24 Admitting Diagnosis fall from ground level acute respiratory failure sepsis pneumonia acute PE upper respiratory infection hypokalemia dysphasia DS: Discharge Diagnosis Discharge Diagnosis (1) Fall from ground level: Code(s): W18.30XA - Fall on same level, unspecified, initial encounter Status: Acute (2) Acute respiratory failure: Code(s): J96.00 - Acute respiratory failure, unspecified whether with hypoxia or hypercapnia Status: Acute (3) Sepsis: Qualifiers: Sepsis acute organ dysfunction status: without acute organ dysfunction Sepsis type: sepsis due to unspecified organism Qualified Code(s): A41.9 - Sepsis, unspecified organism Code(s): A41.9 - Sepsis, unspecified organism Status: Acute (4) PNA (pneumonia): Qualifiers: Pneumonia type: due to COVID-19 virus Qualified Code(s): U07.1 - COVID- 19; J12.82 - Pneumonia due to coronavirus disease 2019 Code(s): J18.9 - Pneumonia, unspecified organism Status: Acute (5) Acute pulmonary embolism: Code(s): I26.99 - Other pulmonary embolism without acute cor pulmonale Status: Acute (6) Upper respiratory infection: Code(s): J06.9 - Acute upper respiratory infection, unspecified Status: Acute (7) Hypokalemia: Code(s): E87.6 - Hypokalemia Status: Acute (8) Dysphagia: Code(s): R13.10 - Dysphagia, unspecified Status: Acute DS: Summary Hospital Course Reason for hospitalization: fall from ground level acute respiratory failure sepsis pneumonia acute PE upper respiratory infection hypokalemia dysphasia Hospital Course: 78 y/o M with PMH of [place], CAD with 7 stents placed, and hypothyroidism presents here with ground-level fall, weakness, and shortness of breath. Patient lost his balance and was not using his walker at the time (utilizes walker at baseline) resulting in him falling to the ground. He denied a head strike and loss of consciousness. A head CT showed no acute findings and C spine was negative. Continued to work with PT/OT throughout admission. On admission patient was meeting sirs criteria with TLL pneumonia on CT, leukocytosis, temp 100, HR up to 97 in the ED. He was short of breath requiring oxygen supplementation. Of note patient also was recently diagnosed with Covid. CXR showed nonspecific right basilar haziness. Started on CAP tx, transitioned to oral antibiotics at time of discharge. A chest CTA showed an acute right lower lobe PE, right sided pneumonia and mild emphysema. Patient was started on lovenox and transitioned to eliquis prior to discharge. He was given a course of prednisone as well for a po ssible COPD exacerbation secondary to PE and pneumonia. Patient was able to be weaned off of supplemental oxygen. Patient reported a frequent cough worse with meals and that food sticks to his mouth. Speech therapy consult for dysphagia, evaluate aspiration. MBS obtained and required easy to chew level 7 or soft and bite sized level 6 with regular liquids. Prior to discharge patient had no complaints, denying chest pain, shortness of breath, nausea/vomiting and abdominal pain. Patient discharged back to [facility] in stable condition. He is to complete his antibiotics and continue his anticoagulation as prescribed . Follow up with his PCP in 1 week. Status at Discharge Functional status at discharge: uses cane/walker Time Spent with Patient Time attestation: Total time spent providing and/or coordinating discharge services: Time spent: Greater than 30 minutes Exam Narrative: AF HR 63 RR 16 SpO2 96 BP 167/79 General: male in no acute respiratory distress who is nontoxic appearing, lying semi recumbent in bed. HEENT: Normocephalic. Atraumatic. Extraocular movement intact. Sclera clear and anicteric. No facial asymmetry. Chest: Lungs are clear but slightly diminished to auscultation bilaterally. No wheezes or crackles. CV: Heart was regular rate and rhythm. S1/S2. No murmurs, gallops, or rubs. Abd: Abdomen was soft. Nontender. Nondistended. Positive bowel sounds. Ext: No clubbing, cyanosis, or edema. 2+ DP pulses bilaterally. Neuro: Patient is alert. Cranial nerves 2-12 are intact. Speech is clear. DS: Data Data Completed and Pending Completed studies during hospitalization: MBS Hip XR Chest/abdomen/pelvis CTA Head CT C spine CT chest XR Labs on day of discharge: Labs from last 24 hours 09/04/24 06:17 WBC 9.1 RBC 4.03 L Hgb 13.6 L Hct 39.7 L MCV 98.5 MCH 33.7 MCHC 34.3 RDW 13.0 Plt Count 272 MPV 9.3 Immature Gran % (Auto) 0.3 Neut % (Auto) 74.6 H Lymph % (Auto) 14.9 L Coke % (Auto) 9.8 H Eos % (Auto) 0.2 Baso % (Auto) 0.2 Lymph # (Auto) 1.35 Coke # (Auto) 0.9 H Eos # (Auto) 0.0 Baso # (Auto) 0.0 Abs Immat Gran (auto) 0.03 Absolute Neuts (auto) 6.7 Absolute Nucleated RBC 0.000 Nucleated RBC % 0.0 Sodium 137 Potassium 3.9 Chloride 103 Carbon Dioxide 26 Anion Gap 8 BUN 22 H Creatinine 1.30 Estim Creat Clear Calc 41 Estimated GFR 54 L Glucose 92 Calcium 8.9 Total Bilirubin 0.7 AST 90 H ALT 95 H Alkaline Phosphatase 88 Total Protein 6.0 L Albumin 3.4 L Preliminary micro results at discharge 08/30/24 10:04 Blood Culture - Preliminary Blood 08/30/24 10:06 Blood Culture - Preliminary Blood Discharge Plan Discharge Attending physician on discharge: Vikram Ovalle Consulting providers: Daisy Moss; Radha Madsen; Manuel Collins; Joseph Velasco; Andres Sierra V.; Salome Berry; Joey Salmeron Discharging Clinician: Pita Fernandez Anticipated Discharge Date/Time: 09/04/24 13:16 Patient Disposition: [facility] Living Activity: as tolerated Diet: as tolerated and heart healthy Discharge Instructions: Discharge disposition: Patient was admitted for a ground level fall, weakness, and shortness of breath likely secondary from ongoing infection. Patient was diagnosed with a blood clot in his lung Started on Eliquis 10 mg daily, to be completed on 09/08. He will then start Eliquis 5 mg twice a day for at least three months with plan to follow up with primary care provider Strict bleeding precautions since you are being started on Eliquis including shaving with an electric razor, holding pressure for greater than 20 minutes for injury, protection of had with any falls, etc. Patient was diagnosed with pneumonia Started on IV antibiotics and transitioned to oral antibiotic of Augmentin Complete this antibiotic even if feeling better Course of antibiotics to be completed on 09/06 Attached is information on this antibiotic Monitor blood pressures Take caution while standing, rising, or moving Change positions slowly taking a break between each position change If you standing feel dizzy sat back down and take a break Patient had a ground level fall prior to admission Trauma work up was negative Continue to work with therapy to build strength and balance Encouraged to continue with yearly vaccinations Return to the emergency department if he developed sudden shortness of breath, chest pain, nausea, vomiting, upset stomach or intractable diarrhea Return to the emergency department if you develop fever greater than 101.5 Follow-up with the primary care physician within 1 weeks Thank you for choosing [facility] for your healthcare needs Patient Instructions: Antibiotic Form, Amoxicillin/Clavulanate Potassium (By mouth), Apixaban (By mouth), Pulmonary Embolism (DC), Blood Thinners (DC) Patient Language: Irish Stand Alone Forms: General Discharge Information Follow-up/Referrals: Pasquale Gonzalez MD [Primary Care Provider] - Discharge Medications: New Eliquis 5 mg Tablet 5 mg PO Q12HR 90 Days Qty: 180 0RF Rx Instructions: Start date 09/09/24 amoxicillin-pot clavulanate 875-125 mg tablet 1 tablet PO Q12H Qty: 5 0RF Rx Instructions: Course to start tonight and finish on 09/06. Continued latanoprost 0.005 % drops 1 drp EACH EYE HS bupropion HCl 150 mg tablet sustained-release 12 hr 150 mg PO Q12H atorvastatin 80 mg tablet 80 mg PO HS acetaminophen 325 mg Tablet 650 mg PO Q4H PRN (Reason: Pain) polyvinyl alcohol 1.4 % Drops 1 drp LEFT EYE BID PRN (Reason: Dry Eye(S)) cyanocobalamin (vitamin B-12) [Vitamin B-12] 1,000 mcg Tablet 1,000 mcg PO DAILY gabapentin 300 mg capsule 600 mg PO Q8H aspirin 81 mg Tablet,Chewable 81 mg PO DAILY zolpidem 5 mg tablet 5 mg PO HS timolol maleate 0.5 % drops 1 drp LEFT EYE DAILY levothyroxine 112 mcg tablet 112 mcg PO DAILY Date of admission: 08/30/24 10:37 Primary Care Provider: Pasquale Gonzalez Admitting Provider: Sriram Mariee Attending physician on admission: Pita Fernandez Condition: Stable Quality VTE Prophylaxis VTE prophylaxis: pharmacologic ordered Hospitalist MIPS Heart Failure (Exclusion) Patient has history of Heart Transplant or Left Ventricular Assistive Device?: No IF YES, STOP HERE Heart Failure (Qualifier) Patient has current or prior documentation of LVEF less than or equal to 40%, or mod/servere depressed LVSF?: No IF NO, STOP HERE
== END 2024-09-04 15:10 | DRG 177 ==
LOC: ANHED 09:44 → ANH3MEDSUR 11:30
PROVIDERS: Nurse Practitioner Acute Care; Student in an Organized Health Care Education/Training Program; Admitting Provider Internal Medicine; Emergency Provider Emergency Medicine; PCP Hospitalist; Visit Provider Student in an Organized Health Care Education/Training Program
DX: U07.1 COVID-19 (principal); I26.99 Other pulmonary embolism without acute cor pulmonale; J12.82 Pneumonia due to coronavirus disease 2019; J96.00 Acute respiratory failure, unspecified whether with hypoxia or hypercapnia; S00.93XA Contusion of unspecified part of head, initial encounter; W18.30XA Fall on same level, unspecified, initial encounter; R13.10 Dysphagia, unspecified; E87.6 Hypokalemia; E03.9 Hypothyroidism, unspecified; H40.9 Unspecified glaucoma; I25.2 Old myocardial infarction; I25.10 Atherosclerotic heart disease of native coronary artery without angina pectoris; J43.9 Emphysema, unspecified; K21.9 Gastro-esophageal reflux disease without esophagitis; Z95.5 Presence of coronary angioplasty implant and graft; Z79.82 Long term (current) use of aspirin; Z98.41 Cataract extraction status, right eye; Z98.42 Cataract extraction status, left eye; Z87.891 Personal history of nicotine dependence
CPT/HCPCS: 36415; 70450; 71045; 71275; 72125; 73502; 74177; 80053; 81001; 83605; 83880; 84145; 84484; 85025; 85380; 85610; 85652; 85730; 86140; 87040; 87070; 87205; 87493; 87637; 87641; 92610; 92611; 93005; 93306; 94640; 96374; 97161; 97165; 99285; A9270; J0696; J1650; J7030; J7040; J7512; Q9967

== ENCOUNTER 2024-09-20 10:00 | Emergency (ER) | payer MEDICARE, MEDICAID, SELFPAY ==
[2024-09-20] VITALS (8 sets, daily range): BP systolic 134–150; BP diastolic 57–79; PULSE 63–70; RESP 14–16; TEMP 36.1–36.7; O2SAT 97–100
--- NOTE | ~2024-09-20 | CT_ITS ---
EXAMINATION: CT brain wo con DATE: 09/20/2024 10:30 INDICATION: Fall. Injury. TECHNIQUE: Computed tomography (CT) of the head was performed without intravenous contrast. The mA wa s adjusted according to patient size. Iterative reconstruction technique was employed. The dose-lengt h product was 605.33 mGy-cm. COMPARISON: Head CT 08/30/2024 FINDINGS: There is no intracranial hemorrhage, acute infarction, or abnormal intracranial mass lesion . There are scattered areas of low attenuation in the cerebral white matter, which is within normal l imits for the patient's age. There is chronic encephalomalacia in inferior right temporal lobe and in ferior left frontal lobe. The ventricles are normal in size. There is mild mucosal thickening in the paranasal sinuses. There are likely changes of ocular lens replacement surgeries. There is a trace ri ght mastoid effusion. IMPRESSION: 1. 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 Reviewed, dictated and finalized at location A. IMPRESSION: 1. Chronic encephalomalacia in the inferior right temporal lobe and inferior le ft frontal lobe.
--- NOTE | ~2024-09-20 | XR_ITS ---
XR knee RT min 4V 09/20/2024 10:47 Indication: Right knee pain after fall Procedure: 4 views right knee Comparison: No prior studies for comparison. Findings: Mild osteoarthritis. Side plate and screws transfixing the proximal tibia. No acute fractur e or traumatic malalignment. No joint effusion. No foreign bodies. Impression: 1: No acute fracture. Reviewed, dictated and finalized at location B. Impression: 1: No acute fracture.
--- NOTE | ~2024-09-20 | XR_ITS ---
XR hip RT 2V w AP pelvis Ordering provider: Xu Jerez MD History: . FALL, PAIN IN RIGHT SIDE, REDNESS . Comparison: None. FINDINGS: BONES: No acute fracture or dislocation. HIP JOINT SPACES: Severe left hip osteoarthritic changes. Mild right hip osteoarthritic changes. SACROILIAC JOINT SPACES/LUMBAR SPINE: The sacroiliac joint spaces are normal. Mild degenerative carson es of the visualized lower lumbar spine. PUBIC SYMPHYSIS: Normal. SOFT TISSUES: Normal. IMPRESSION: No acute osseous abnormality pelvis and right hip. Severe left hip osteoarthritic changes. Reviewed, dictated and finalized at location A.
--- NOTE | ~2024-09-20 | CT_ITS ---
EXAMINATION: CT cervical spine wo con DATE: 09/20/2024 10:31 INDICATION: Neck injury. Fall. TECHNIQUE: Computed tomography (CT) of the cervical spine was performed without intravenous contrast. Automated exposure control and iterative reconstruction technique were employed. The dose-length pro duct was 398.19 mGy-cm. COMPARISON: CT cervical spine 08/30/2024 FINDINGS: There is 2 mm anterolisthesis of C7 on T1. There is 12 degrees dextroscoliosis of cervical spine. Vertebral body heights are normal. There is moderately decreased disc height at C2-C3, mildly decreased disc height at C3-C4 and C4-C5, and moderately decreased disc height at C5-C6 and C6-C7. Th e following disc levels are specifically discussed: C2-C3: There is severe left uncovertebral joint osteoarthritis. There is severe bilateral facet joint osteoarthritis. There is mild bilateral neural foraminal stenosis. There is mild central canal steno sis. C3-C4: There is mild right and severe left uncovertebral joint osteoarthritis. There is severe right facet joint osteoarthritis. There is ankylosis of left facet joint with severe hypertrophy. There is mild right and moderate left neural foraminal stenosis. There is mild central canal stenosis. C4-C5: There is moderate and severe left uncovertebral joint osteoarthritis. There is severe bilatera l facet joint osteoarthritis. There is mild right and moderate left neural foraminal stenosis. There is mild central canal stenosis. C5-C6: There is severe bilateral uncovertebral joint osteoarthritis. There is severe bilateral facet joint osteoarthritis. There is mild bilateral neural foraminal stenosis. There is mild central canal stenosis. C6-C7: There is severe right and moderate left uncovertebral joint osteoarthritis. There is severe ri ght facet joint osteoarthritis. There is ankylosis of left facet joint with severe hypertrophy. There is mild bilateral neural foraminal stenosis. There is mild central canal stenosis. C7-T1: There is mild bilateral uncovertebral joint osteoarthritis. There is severe bilateral facet lo int osteoarthritis. There is mild bilateral neural foraminal stenosis. There is no central canal sten osis. IMPRESSION: 1. No fracture. 2. Moderate cervical spondylosis. 3. Cervical dextroscoliosis. Reviewed, dictated and finalized at location A.
--- NOTE | ~2024-09-20 | XR_ITS ---
XR shoulder RT min 2V Ordering provider: Xu Jerez MD History: . FALL, PAIN IN RIGHT SIDE, REDNESS . Comparison: None. FINDINGS: BONES: No acute fracture or dislocation. JOINT SPACES: The acromioclavicular joint is normal. The glenohumeral joint shows severe osteoarthrit ic changes. SOFT TISSUES: Normal. IMPRESSION: No acute osseous abnormality right shoulder. Severe osteoarthritic changes of the right glenohumeral joint. Reviewed, dictated and finalized at location A.
--- NOTE | 2024-09-20 11:39 | ED.FALL ---
HPI - Fall General Chief Complaint: Fall Stated Complaint: fall Time Seen by Provider: 09/20/24 10:12 Source: patient Mode of arrival: wheelchair Limitations: no limitations History of Present Illness HPI Narrative: 78-year-old with a history of PE on Eliquis here with the complaints of fall early this morning. Patient states that he was walking towards his bathroom lost his balance and fell and hit his head denies LOC complains of right shoulder and knee pain. He denies any chest pain or shortness of breath. complaint: fall Fall from: standing Place fall occurred: home Loss of consciousness: none Symptoms prior to fall: none Context: tripped/slipped Location of injury: head Location of injury - extremities: Right: shoulder and knee Associated symptoms (after fall): denies Related Data Home Medications Medication Instructions Recorded Confirmed acetaminophen 325 mg tablet 650 mg PO Q4H PRN Pain 08/30/24 08/30/24 aspirin 81 mg chewable tablet 81 mg PO DAILY 08/30/24 08/30/24 atorvastatin 80 mg tablet 80 mg PO HS 08/30/24 08/30/24 bupropion HCl 150 mg tablet,12 hr 150 mg PO Q12H 08/30/24 08/30/24 sustained-release cyanocobalamin (vitamin B-12) 1,000 mcg PO DAILY 08/30/24 08/30/24 1,000 mcg tablet (Vitamin B-12) gabapentin 300 mg capsule 600 mg PO Q8H 08/30/24 08/30/24 latanoprost 0.005 % eye drops 1 drp EACH EYE HS 08/30/24 08/30/24 levothyroxine 112 mcg tablet 112 mcg PO DAILY 08/30/24 08/30/24 polyvinyl alcohol 1.4 % eye drops 1 drp LEFT EYE BID PRN Dry Eye(S) 08/30/24 08/30/24 timolol maleate 0.5 % eye drops 1 drp LEFT EYE DAILY 08/30/24 08/30/24 zolpidem 5 mg tablet 5 mg PO HS 08/30/24 08/30/24 Allergies Allergy/AdvReac Type Severity Reaction Status Date / Time No Known Allergies Allergy Verified 09/20/24 10:06 Review of Systems Review of Systems: All systems reviewed & are unremarkable except as noted in HPI and below Constitutional: Constitutional: Reports no additional constitutional complaints Eyes: Eyes: Reports no additional eye complaints ENT: Reports system reviewed and no additional complaints, except as documented Cardiovascular: Cardiovascular: Reports no additional cardiovascular complaints Respiratory: Respiratory: Reports no additional respiratory complaints Gastrointestinal: Gastrointestinal: Reports no additional gastrointestinal complaints Integumentary/Breasts: Skin/Breast: Reports system reviewed and no additional complaints, except as docu Neurologic: Reports system reviewed and no additional complaints, except as documented PMFSH Past Medical History Medical History CAD (coronary artery disease) Depression GERD (gastroesophageal reflux disease) Glaucoma Hemorrhoids Hypothyroidism Myocardial infarction Nodular prostate Retinal detachment Walker as ambulation aid Surgical History Surgical History History of bilateral cataract extraction History of coronary artery stent placement x7 History of eye surgery Social History Social History Smoking packs per day: 2 Smoking cigarettes per day: 40.0 Years smoked: 40 Smoking pack-years: 80.00 Smoking status: Former smoker Smoking end date: 11/28/07 Alcohol intake: never Substance use: never Do You Feel Safe in your Home?: Yes Lack of Transportation: No Lack of Food: Never True Current Housing: I Have Housing Concerned About Future Housing: No Difficulty Paying Gas/Electric Bills: No Difficulty Paying for Meds: No Currently Unemployed: No Education: Trade/Vocational Certificate Difficulty w/ Childcare or Family Care: No Spiritual care concerns: No Exam Narrative: GENERAL: Well-appearing, well-nourished, and in no acute distress. HEAD: Normocephalic, atraumatic. EYES: PERRLA and EOMI. ENT: Nares clear, no rhinorrhea or epistaxis. Mucous membranes moist. NECK: Supple. CHEST: Clear to auscultation. No respiratory distress. HEART: Regular rate and rhythm. No murmur heard. Normal peripheral pulses. ABDOMEN: Soft, nontender, nondistended, normal active bowel sounds. EXTREMITIES: Normal range of motion. No edema. Mild abrasion on the right shoulder and the right knee SKIN: Warm, dry, no rash. NEURO: No focal deficits. Alert and oriented x3. PSYCH: Normal mood and affect. Course Course Emergency Course: Patient comfortably resting has no complaints at this time. Did inform him about his CT, and x-ray findings. Advised him to continue his home medications, fall precautions advised Vital Signs Vital signs: Vital Signs Temperature 36.1 C L 09/20/24 10:01 Pulse Rate 70 09/20/24 10:01 Respiratory Rate 16 09/20/24 10:01 Blood Pressure 150/79 H 09/20/24 10:01 Pulse Oximetry 99 09/20/24 10:01 Oxygen Delivery Room Air 09/20/24 10:01 Temperature 36.1 C L 09/20/24 10:01 Pulse Rate 63 09/20/24 11:21 Respiratory Rate 14 09/20/24 11:21 Blood Pressure 134/57 L 09/20/24 11:21 Pulse Oximetry 97 09/20/24 11:21 Oxygen Delivery Room Air 09/20/24 10:01 MDM - Fall MDM Narrative Medical decision making narrative: 78-year-old on on apixaban here with the complaints of fall appears to be more mechanical at this time. Will do a CT of the head to rule out bleed, complaining of right shoulder and knee pain get x-rays . Differential Diagnosis Differential diagnosis: Likely dislocation of shoulder region and concussion with loss of consciousness Medical Records Attestation: I reviewed the patient's medical records. Imaging Data Radiologist's impression: ITS Impressions Head CT 09/20/24 10:34 IMPRESSION: 1. 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 Cervical Spine CT 09/20/24 10:40 IMPRESSION: 1. No fracture. 2. Moderate cervical spondylosis. 3. Cervical dextroscoliosis. Hip/Pelvis X-Ray 09/20/24 10:49 IMPRESSION: No acute osseous abnormality pelvis and right hip. Severe left hip osteoarthritic changes. Knee X-Ray 09/20/24 10:49 Impression: 1: No acute fracture. Shoulder X-Ray 09/20/24 10:51 IMPRESSION: No acute osseous abnormality right shoulder. Severe osteoarthritic changes of the right glenohumeral joint. Discharge Plan Discharge Clinical Impression: Head injury Qualifiers: Encounter type: initial encounter Qualified Code(s): S09.90XA - Unspecified injury of head, initial encounter Contusion of right shoulder Qualifiers: Encounter type: initial encounter Qualified Code(s): S40.011A - Contusion of right shoulder, initial encounter Contusion of knee, right Qualifiers: Encounter type: initial encounter Qualified Code(s): S80.01XA - Contusion of right knee, initial encounter Patient Disposition: Home, Self-Care Condition: Stable Instructions: Head Injury (ED), Contusion in Adults (ED) Additional Instructions: Continue home medications, follow-up with your primary doctor fall precautions Prescriptions: No Action latanoprost 0.005 % drops 1 drp EACH EYE HS bupropion HCl 150 mg tablet sustained-release 12 hr 150 mg PO Q12H atorvastatin 80 mg tablet 80 mg PO HS acetaminophen 325 mg Tablet 650 mg PO Q4H PRN (Reason: Pain) polyvinyl alcohol 1.4 % Drops 1 drp LEFT EYE BID PRN (Reason: Dry Eye(S)) cyanocobalamin (vitamin B-12) [Vitamin B-12] 1,000 mcg Tablet 1,000 mcg PO DAILY gabapentin 300 mg capsule 600 mg PO Q8H aspirin 81 mg Tablet,Chewable 81 mg PO DAILY zolpidem 5 mg tablet 5 mg PO HS timolol maleate 0.5 % drops 1 drp LEFT EYE DAILY levothyroxine 112 mcg tablet 112 mcg PO DAILY Eliquis 5 mg Tablet 5 mg PO Q12HR 90 Days Qty: 180 0RF Rx Instructions: Start date 09/09/24 amoxicillin-pot clavulanate 875-125 mg tablet 1 tablet PO Q12H Qty: 5 0RF Rx Instructions: Course to start tonight and finish on 09/06. Follow-up/Referrals: Pasquale Gonzalez MD [Primary Care Provider] - Time of Disposition: 11:44
--- NOTE | 2024-09-20 12:20 | PC.NURSE ---
report called to [facility] at 1146 to [place]
== END 2024-09-20 12:25 | disposition home or self-care (01) ==
PROVIDERS: Emergency Provider Family Medicine; PCP Hospitalist
DX: S09.90XA Unspecified injury of head, initial encounter (principal); S40.011A Contusion of right shoulder, initial encounter; S80.01XA Contusion of right knee, initial encounter; I25.10 Atherosclerotic heart disease of native coronary artery without angina pectoris; I25.2 Old myocardial infarction; E03.9 Hypothyroidism, unspecified; K21.9 Gastro-esophageal reflux disease without esophagitis; H40.9 Unspecified glaucoma; F32.A Depression, unspecified; Z95.5 Presence of coronary angioplasty implant and graft; Z86.711 Personal history of pulmonary embolism; Z87.891 Personal history of nicotine dependence; Z98.42 Cataract extraction status, left eye; Z98.41 Cataract extraction status, right eye; Z79.82 Long term (current) use of aspirin; Z79.899 Other long term (current) drug therapy; Z79.01 Long term (current) use of anticoagulants; M47.812 Spondylosis without myelopathy or radiculopathy, cervical region; G93.89 Other specified disorders of brain; M19.011 Primary osteoarthritis, right shoulder; M16.12 Unilateral primary osteoarthritis, left hip; W18.39XA Other fall on same level, initial encounter
CPT/HCPCS: 70450; 72125; 73030; 73502; 73564; 99284